=== PATIENT | male | born 1950 | race Two or more races ===

== ENCOUNTER 2020-09-03 16:31 | Outpatient (REF) | payer MEDICARE, MEDICAID, SELFPAY | END 2020-09-03 16:32 | disposition home or self-care (01) | LOC: HO.LAB 16:31 | PROVIDERS: PCP Internal Medicine Gastroenterology; Visit Provider Internal Medicine | DX: Z20.828 Contact with and (suspected) exposure to other viral communicable diseases (principal) | CPT/HCPCS: C9803; U0003 ==

== ENCOUNTER 2021-08-01 14:47 | Emergency (ER) | payer MEDICARE, MEDICAID, SELFPAY ==
--- NOTE | ~2021-08-01 | XR_ITS ---
EXAMINATION: XR SHOULDER, RIGHT CLINICAL INFORMATION: Evaluate for foreign bodies. Axillary abscess. COMPARISON: None TECHNIQUE: Three views of the right shoulder. FINDINGS: No acute fractures or malalignment. The humeral head is well-seated in the glenoid. The acromioclavicular joint is intact. No evidence of acutely displaced right-sided rib fractures. Soft tissue thickening in the right axillary region corresponding to the known axillary abscess. There are some linear radiopacities in this area likely representing soft tissue foldings. There is also gas. No definite radiopaque foreign bodies. XR/XR shoulder RT min 2V IMPRESSION: As above, no definite radiopaque foreign bodies. No acute fractures or malalignment.
--- NOTE | ~2021-08-01 | XR_ITS ---
EXAMINATION: XR CHEST CLINICAL INFORMATION: Right axillary abscess. COMPARISON: None. TECHNIQUE: 2 views of the chest were obtained. FINDINGS: Normal appearance of the cardiomediastinal silhouette. Adequately expanded lungs without focal airspace opacities, pleural effusions or pneumothorax. Healing inferior left rib fractures. No acutely displaced rib fractures. Soft tissue thickening in the right axillary region, likely corresponding to the known axillary abscess. XR/XR chest 2V IMPRESSION: No acute cardiopulmonary findings.
[2021-08-01 15:06] VITALS: BP 127/79; PULSE 80; RESP 18; TEMP 36.8; O2SAT 97; BMI 23.8
--- NOTE | 2021-08-01 16:13 | ECG_ITS ---
Test Reason : R/O SEPSIS Blood Pressure : / mmHG Vent. Rate : 060 BPM Atrial Rate : 060 BPM P-R Int : 108 ms QRS Dur : 082 ms QT Int : 440 ms P-R-T Axes : -02 -16 002 degrees QTc Int : 440 ms Sinus rhythm with short LA Left axis deviation Otherwise normal ECG No previous ECGs available Referred By: Frieda Galvan Electronically Signed By:BHUMI BECERRA MD
--- NOTE | 2021-08-01 16:26 | ED_ITS ---
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 Unknown if there is a foreign body in the abscess on the right axilla, states that this swelling has only been there for 3 days. He does have multiple abscesses to bilateral lower extremities from prior injection sites. He states to be very tired has intermittent chills, and generally feels unwell. MD complaint: abscess/boil and foreign body Onset (ago): week(s) Tetanus up to date: no Location: neck, RUE, LLE and RLE Severity: moderate Severity scale (1-10): 7 Quality: burning and aching Pain Consistency: constant Relieving factors: none Exacerbating factors: palpation and movement Context: IVDA Associated symptoms: chills and malaise Treatments prior to arrival: attempted to drain pus at home Related Data Previous Rx's Medication Instructions Recorded amoxicillin 875 mg-potassium 1 tab PO Q12H 10 Days #20 tab 08/01/21 clavulanate 125 mg tablet (Augmentin) doxycycline monohydrate 100 mg 100 mg PO BID 10 Days #20 cap 08/01/21 capsule ibuprofen 600 mg tablet 600 mg PO Q6H PRN #60 tab 08/01/21 Allergies Allergy/AdvReac Type Severity Reaction Status Date / Time No Known Allergies Allergy Verified 08/01/21 15:05 Review of Systems Review of Systems: Constitutional: No Fever, positive Chills ENT/Mouth: No Ear Pain, No Hoarseness, No sore throat Eyes: No Eye Pain, No Swelling, No Redness, No Foreign Body Cardiovascular: Positive right chest wall Pain, No SOB Respiratory: No Cough, No Dyspnea Gastrointestinal: Positive Nausea, No Vomiting, No Diarrhea, No abdominal Pain Genitourinary: No Dysuria, No Hematuria Musculoskeletal: positive right arm and bilateral lower extremity pain, No M yalgias, No Joint Swelling Skin: No Skin lacerations, No rash Neuro: No Weakness, No Numbness, No Paresthesias, No Loss of Consciousness, No Dizziness, No Headache Psych: No Anxiety/Panic, No Depression Heme/Lymph: no easy bruising, no Lymphadenopathy Endocrine: No Polyuria, No Polydipsia Yes all other systems are reviewed and are negative [facility] Past Medical History Attestation statement: The following information was validated with the patient. Source: old records reviewed Medical History Heroin abuse Social History Social History Advance Directives: No Advance Directives Information Provided: Yes Physical Exam Vital Signs: Vital Signs: Last Vital Signs Temp 98.5 F 08/01/21 19:46 Pulse 78 08/01/21 19:46 Resp 17 08/01/21 19:46 BP 124/76 08/01/21 19:46 Pulse Ox 97 08/01/21 15:06 Body Mass Index 23.8 Appearance: Alert. Oriented X3. No acute distress. Unkempt. Eyes: Pupils equal, round and reactive to light. Sclera nonicteric. ENT: Pharynx normal. Right-sided cervical lymphadenopathy noted. Neck: Normal inspection. Neck supple. Tender to palpation. Right neck phlebitis. CVS: Normal heart rate and rhythm. Pulses normal. Respiratory: No respiratory distress. Breath sounds normal. Abdomen: Soft and nontender. Skin: Multiple abscesses and IV injection sites. Please note photographs of abscesses in extremities. Extremities: No lower extremity edema. Moves all extremities against resistanc e. Neuro: No motor deficit. No sensory deficit. Cranial nerves 2-12 intact. Course Course Course Narrative: 71-year-old male presents with multiple abscesses suspected to be from IV drug use ice. States that they have only been there for 3 days however the amount of induration swelling and phlebitis noted it leads me to believe that these have been there for much longer than 3 days. He does report having a relapse, using at least 1 bundle prior to arrival. He has been clean for 8 years, he is interested in detox. Will order labs, cultures, prepare for I&D of the right axilla, will give Zosyn and vancomycin. I did discuss this case with Dr. Aguilar and she examined the patient at bedside. I&D of abscess, prepped and draped in sterile fashion. Approximately 6 inches of 1/2 inch iodoform dressing packing in place. Patient tolerated procedure well. 7:19 p.m. IV infusion continues. Vital signs are stable and within normal limits. Patient is afebrile. Patient will be discharged to home or detox facility if patient accepts care. White count is normal, no elevated lactic ac id, no indication of sepsis or SIRS. Will complete antibiotic course, provide p.o. antibiotics and discharge. rhythmic gymnastics coach consult complete and discussed plan for detox in the morning. Patient verbalized understanding of and agrees to plan of care. Consultations Consultation #1: rhythmic gymnastics coach Time: 22:10 MDM - Skin/Abscess/Foreign Bdy Differential Diagnosis Differential diagnosis: Likely abscess of skin or subcutaneous tissue, cellulitis, insect bites and contact dermatitis Medical Records Attestation: I reviewed the patient's medical records. Lab Data Attestation: I reviewed the patient's lab results. Result diagrams: 08/01/21 17:13 08/01/21 17:12 Labs: Lab Results 08/01/21 08/01/21 08/01/21 Range/Units 17:12 17:13 17:13 WBC 10.1 (4.8-10.8) X10*3/uL RBC 3.66 L (4.60-5.80) X10*6/uL Hgb 10.7 L (14.0-18.0) g/dl Hct 30.5 L (42-52) % MCV 83.3 (80-98) fL MCH 29.2 (27.0-33.0) pg MCHC 35.1 (31.0-36.0) g/dl RDW 12.1 (11.0-16.0) % Plt Count 251 (160-400) X10*3/uL MPV 10.3 (9.4-12.4) fL Immature Gran % (Auto) 0.7 H (0.0-0.4) % Neut % (Auto) 79.0 H (45-73) % Lymph % (Auto) 12.8 L (20-40) % [place] % (Auto) 7.2 (2-11) % Eos % (Auto) 0.0 (0-4) % Baso % (Auto) 0.3 (0-2) % Lymph # (Auto) 1.3 (1.2-4.9) X10*3/uL [place] # (Auto) 0.7 (0.1-1.2) X10*3/uL Eos # (Auto) 0.0 (0.0-0.4) X10*3/uL Baso # (Auto) 0.0 (0.0-0.2) X10*3/uL Abs Immat Gran (auto) 0.07 H (0.00-0.03) X10*3/uL Absolute Neuts (auto) 8.0 (2.0-8.3) X10*3/uL Absolute Nucleated RBC 0.000 (0.0-0.012) X10*3/uL Nucleated RBC % (auto) 0.0 (0.0-0.2) /100WBC Sodium 136 (135-145) mmol/L Potassium 3.7 (3.3-5.1) mmol/L Chloride 101 (96-108) mmol/L Carbon Dioxide 26 (22-29) mmol/L Anion Gap 13 (12-20) BUN 25 H (9-16) mg/dL Creatinine 1.86 H (0.5-1.4) mg/dL Estim Creat Clear Calc 28.5 Estimated GFR 36 Random Glucose 84 (60-115) mg/dL Lactic Acid 1.1 (0.5-2.0) mmol/L Calcium 9.8 (8.4-10.2) mg/dL Total Bilirubin 0.7 (0.0-1.0) mg/dL Direct Bilirubin 0.2 (0.0-0.5) mg/dL AST 15 (5-37) U/L ALT 7 (0-40) U/L Alkaline Phosphatase 111 (39-117) U/L Troponin I High Sens (<3.5-35.0) ng/L Total Protein 7.6 (6.5-8.0) g/dL Albumin 4.1 (3.5-5.0) g/dL Lipase 10 (8-78) U/L COVID-19 (DIONY) (Negative) COVID-19 Clin Com 08/01/21 08/01/21 Range/Units 17:13 19:56 WBC (4.8-10.8) X10*3/uL RBC (4.60-5.80) X10*6/uL Hgb (14.0-18.0) g/dl Hct (42-52) % MCV (80-98) fL MCH (27.0-33.0) pg MCHC (31.0-36.0) g/dl RDW (11.0-16.0) % Plt Count (160-400) X10*3/uL MPV (9.4-12.4) fL Immature Gran % (Auto) (0.0-0.4) % Neut % (Auto) (45-73) % Lymph % (Auto) (20-40) % [place] % (Auto) (2-11) % Eos % (Auto) (0-4) % Baso % (Auto) (0-2) % Lymph # (Auto) (1.2-4.9) X10*3/uL [place] # (Auto) (0.1-1.2) X10*3/uL Eos # (Auto) (0.0-0.4) X10*3/uL Baso # (Auto) (0.0-0.2) X10*3/uL Abs Immat Gran (auto) (0.00-0.03) X10*3/uL Absolute Neuts (auto) (2.0-8.3) X10*3/uL Absolute Nucleated RBC (0.0-0.012) X10*3/uL Nucleated RBC % (auto) (0.0-0.2) /100WBC Sodium (135-145) mmol/L Potassium (3.3-5.1) mmol/L Chloride (96-108) mmol/L Carbon Dioxide (22-29) mmol/L Anion Gap (12-20) BUN (9-16) mg/dL Creatinine (0.5-1.4) mg/dL Estim Creat Clear Calc Estimated GFR Random Glucose (60-115) mg/dL Lactic Acid (0.5-2.0) mmol/L Calcium (8.4-10.2) mg/dL Total Bilirubin (0.0-1.0) mg/dL Direct Bilirubin (0.0-0.5) mg/dL AST (5-37) U/L ALT (0-40) U/L Alkaline Phosphatase (39-117) U/L Troponin I High Sens 5.3 (<3.5-35.0) ng/L Total Protein (6.5-8.0) g/dL Albumin (3.5-5.0) g/dL Lipase (8-78) U/L COVID-19 (DIONY) Negative (Negative) COVID-19 Clin Com See Note Imaging Data Chest x-ray: Attestation: I personally reviewed and interpreted this imaging study as follows: Radiologist's impression: EXAMINATION: XR CHEST CLINICAL INFORMATION: Right axillary abscess. COMPARISON: None. TECHNIQUE: 2 views of the chest were obtained. FINDINGS: Normal appearance of the cardiomediastinal silhouette. Adequately expanded lungs without focal airspace opacities, pleural effusions or pneumothorax. Healing inferior left rib fractures. No acutely displaced rib fractures. Soft tissue thickening in the right axillary region, likely corresponding to the known axillary abscess. XR/XR chest 2V IMPRESSION: No acute cardiopulmonary findings. Right shoulder: Attestation: I personally reviewed and interpreted this imaging study as follows: Radiologist's impression: EXAMINATION: XR SHOULDER, RIGHT CLINICAL INFORMATION: Evaluate for foreign bodies. Axillary abscess.? COMPARISON: None? TECHNIQUE: Three views of the right shoulder. FINDINGS: No acute fractures or malalignment. The humeral head is well-seated in the glenoid. The acromioclavicular joint is intact. No evidence of acutely displaced right-sided rib fractures. Soft tissue thickening in the right axillary region corresponding to the known axillary abscess. There are some linear radiopacities in this area likely representing soft tissue foldings. There is also gas. No definite radiopaque foreign bodies.? XR/XR shoulder RT min 2V IMPRESSION: As above, no definite radiopaque foreign bodies. ? No acute fractures or malalignment. ECG Data Attestation: I personally reviewed and interpreted this ECG as follows: ECG interpretation date: 08/01/21 ECG interpretation time: 17:00 Prior ECG tracings: not available for review Interpretation: Vent. rate 60 BPM W[place] interval 108 ms QRS duration 82 ms QT/QTc 440/440 ms P-R-T axes -2 -16 2 Sinus rhythm with short [place] Otherwise normal ECG No previous ECGs available Procedures Abscess I/D Site: upper extremity Side (if applicable): right Local Anesthetic: lidocaine 2% Amount of anesthesia used (mL): 10 Technique: incised with blade Amount of fluid expressed (mL): 60 Sent for culture/gram staining?: Yes Irrigation: No Packing used?: iodoform Discharge Plan Discharge Clinical Impression: Cellulitis Qualifiers: Site of cellulitis: extremity Site of cellulitis of extremity: axilla Laterality: right Qualified Code(s): L03.111 - Cellulitis of right axilla Abscess of skin or subcutaneous tissue Qualifiers: Site of cutaneous abscess: extremity Site of cutaneous abscess of extremity: unspecified Qualified Code(s): L02.419 - Cutaneous abscess of limb, unspecified Patient Disposition: Home, Self-Care Instructions: Cellulitis (ED), Abscess (ED), Abscess Follow-up (ED), Abscess Incision and Drainage (DC) Additional Instructions: You were evaluated for multiple abscesses. We incised and drained the abscess on your right armpit. There is iodoform packing inside the abscess that we drained. Please return in 3 days for wound check. Please follow-up with detox in the morning. We prescribed doxycycline and Augmentin antibiotics. Please complete the entire course of these medications If symptoms worsen please return sooner than 3 days. Thank you for choosing this emergency department for evaluation. Please follow-up with primary care physician as needed. Return to the emergency de partment for any new, concerning, or worsening symptoms. Prescriptions: New doxycycline monohydrate 100 mg capsule 100 mg PO BID 10 Days Qty: 20 RF: 0 amoxicillin-pot clavulanate [Augmentin] 875-125 mg tablet 1 tab PO Q12H 10 Days Qty: 20 RF: 0 ibuprofen 600 mg tablet 600 mg PO Q6H PRN (Reason: fever or pain) Qty: 60 RF: 0 Referrals: Wound Care [facility] [Outside] - 2 days (Multiple abscesses) Interventions: ED Discharge Assessment Last Done: 08/01/21 22:02 Discharge Date/Time: 08/01/21 22:06
--- NOTE | 2021-08-01 16:50 | PC.NURSE ---
PT EVALUATED BY PROVIDER. PT HAS LARGE ABSCESS ANTERIOR AXILLA. SITE IS GOLF BALL IN SIZE. PT REPORTS INCREASED PAIN TO SITE. PT STATES THAT HE INJECTS HEROIN TO VARIOUS SITES OF HIS BODY. PT WITH MULTIPLE AREAS ON ARMS AND LEGS THAT ARE INJECTION SITE. PT EXTREMELY DIFFICULT IV START. #20 PLACED TO LEFT FOREARM, UNABLE TO OBTAIN BLOOD WORK. PCT TO ATTEMPT LAB DRAW. PT AWARE AND AGREEABLE TO PLAN.
[2021-08-01 17:22] LABS: MANUAL DIFF FLAG NO
[2021-08-01 17:24] LABS: Basophils Percent Auto 0.3 % (0-2); Hematocrit 30.5 % (42-52); Hemoglobin 10.7 g/dl (14.0-18.0); Imm Gran Abs Auto 0.07 X10*3/uL (0.00-0.03); Imm Gran Pct Auto 0.7 % (0.0-0.4); Lymphocytes Absolute Auto 1.3 X10*3/uL (1.2-4.9); Lymphocytes Percent Auto 12.8 % (20-40); Mean Corpuscular HGB Conc 35.1 g/dl (31.0-36.0); Mean Corpuscular Hemoglobin 29.2 pg (27.0-33.0); Mean Corpuscular Volume 83.3 fL (80-98); Mean Platelet Volume 10.3 fL (9.4-12.4); Monocytes Absolute Auto 0.7 X10*3/uL (0.1-1.2); Monocytes Percent Auto 7.2 % (2-11); Platelet Count 251 X10*3/uL (160-400); Red Blood Count 3.66 X10*6/uL (4.60-5.80); Red Cell Distribution Width 12.1 % (11.0-16.0); White Blood Count 10.1 X10*3/uL (4.8-10.8)
[2021-08-01 17:35] LABS: Lactic Acid 1.1 mmol/L (0.5-2.0)
[2021-08-01 17:39] LABS: Alanine Aminotransferase 7 U/L (0-40); Albumin Level 4.1 g/dL (3.5-5.0); Alkaline Phosphatase 111 U/L (39-117); Anion Gap 13 (12-20); Aspartate Amino Transferase 15 U/L (5-37); Bilirubin Direct 0.2 mg/dL (0.0-0.5); Bilirubin Total 0.7 mg/dL (0.0-1.0); Blood Urea Nitrogen 25 mg/dL (9-16); Calcium 9.8 mg/dL (8.4-10.2); Carbon Dioxide 26 mmol/L (22-29); Chloride 101 mmol/L (96-108); Creatinine Clr Calc Pharmacy 28.5; Estimated Glomerular Filt Rate 36; Glucose Random 84 mg/dL (60-115); Lipase 10 U/L (8-78); Potassium 3.7 mmol/L (3.3-5.1); Sodium 136 mmol/L (135-145); Total Protein 7.6 g/dL (6.5-8.0)
[2021-08-01 17:45] LABS: Troponin-I High Sensitivity 5.3 ng/L (<3.5-35.0)
[2021-08-01] MEDS: Piperacillin Sodium/Tazobactam 3.375 GM in 0.9 % Sodium Chloride 50 ML IV (17:49)
[2021-08-01] MEDS: Lidocaine HCl 2 % MPF 5 ML VIAL 10 ML SUBCUT (17:49)
[2021-08-01] MEDS: Diphth,Pertus(ACell),Tet Adult 0.5 ML SYRINGE IM (17:50)
[2021-08-01] MEDS: 0.9 % Sodium Chloride 1,000 ML 999 ML IVCONT ×2 (17:52→18:54)
[2021-08-01] MEDS: vancomycin HCL 750 MG in 0.9 % Sodium Chloride 250 ML 265 MG IV (17:52)
[2021-08-01 19:46] VITALS: BP 124/76; PULSE 78; RESP 17; TEMP 36.9
[2021-08-01 20:16] LABS: COVID-19 Test Negative (Negative); IDNOW Serial# 55D5AD1C
--- NOTE | 2021-08-01 20:43 | MHC.RECOVSUP ---
? Reason for consult:Detox o?? Current location [facility]? o?? Identified substance use concern ?Heroine ?? Seeking ATS (detox) ?? Support ? Intervention: o?? ATS bed search started/completed/in process o?? Community resources provided o?? Harm reduction discussion ? Plan: o?? o?? Bed search in progress to o?? Follow up tomorrow? o?? Patient to follow up with [facility] after discharge ? Additional information: Pt. wants to go to detox Explained to Pt. that I would start a bed search.Wasn't able to find a bed but tonight. But [facility] states that there will be beds available tomorrow.Informed Care Team about the situation. They will try to do the bed search tomorrow. Gave information resource to Pt. Pt. will stay overnight.
--- NOTE | 2021-08-01 21:32 | PC.NURSE ---
PT WILL BE GOING TO THE WAIT ROOM BECAUSE [facility] CAN GET HIM A BED AT [facility] TOMORROW. PT HAS NO MEDICAL REASON TO BE ADMITTED TO HOSPITAL.
--- NOTE | 2021-08-01 22:06 | PC.NURSE ---
PT RIGHT UNDERARM ABSCESS CLEANED AND DRAINED AND PACKED BY MEGHA GUTIERREZ. DSD APPLIED.
== END 2021-08-01 22:06 | disposition home or self-care (01) ==
PROVIDERS: Nurse Practitioner Family; Emergency Provider Emergency Medicine; PCP Internal Medicine Gastroenterology
DX: L03.111 Cellulitis of right axilla (principal); L02.419 Cutaneous abscess of limb, unspecified; L02.411 Cutaneous abscess of right axilla; M79.10 Myalgia, unspecified site; M79.601 Pain in right arm; S40.811A Abrasion of right upper arm, initial encounter; X58.XXXA Exposure to other specified factors, initial encounter; Y93.9 Activity, unspecified; Y92.9 Unspecified place or not applicable; Y99.9 Unspecified external cause status; Z79.899 Other long term (current) drug therapy; Z20.822 Contact with and (suspected) exposure to COVID-19
CPT/HCPCS: 10060; 36415; 71046; 73030; 80048; 80076; 83605; 83690; 84484; 85025; 87040; 87071; 87077; 87147; 87186; 87205; 87635; 90471; 90715; 93005; 96361; 96374; 96375; 99284; J2543; J3370

== ENCOUNTER 2022-05-04 11:39 | Emergency (ER) | payer MEDICARE, SELFPAY ==
[2022-05-04 12:00] VITALS: BP 124/77; PULSE 74; RESP 18; TEMP 36.7; O2SAT 97; BMI 23.8
[2022-05-04 12:40] LABS: MANUAL DIFF FLAG NO
[2022-05-04 12:49] LABS: Basophils Percent Auto 0.2 % (0-2); Eosinophils Percent Auto 0.2 % (0-4); Hematocrit 35.9 % (42.0-52.0); Hemoglobin 11.8 g/dl (14.0-18.0); Imm Gran Abs Auto 0.05 X10*3/uL (0.00-0.03); Imm Gran Pct Auto 0.5 % (0.0-0.4); Lymphocytes Absolute Auto 0.9 X10*3/uL (1.2-4.9); Lymphocytes Percent Auto 9.7 % (20-40); Mean Corpuscular HGB Conc 32.9 g/dl (31.0-36.0); Mean Corpuscular Hemoglobin 28.7 pg (27.0-33.0); Mean Corpuscular Volume 87.3 fL (80.0-98.0); Mean Platelet Volume 10.3 fL (9.4-12.4); Monocytes Absolute Auto 0.6 X10*3/uL (0.1-1.2); Monocytes Percent Auto 6.5 % (2-11); Neutrophils Absolute Auto 8.1 x10*3/uL (2.0-8.3); Neutrophils Percent Auto 82.9 % (45-73); Platelet Count 180 X10*3/uL (160-400); Red Blood Count 4.11 X10*6/uL (4.60-5.80); Red Cell Distribution Width 12.6 % (11.0-16.0); White Blood Count 9.7 X10*3/uL (4.8-10.8)
[2022-05-04 12:59] LABS: Alanine Aminotransferase 40 U/L (0-40); Albumin Level 4.5 g/dL (3.5-5.0); Alkaline Phosphatase 171 U/L (39-117); Anion Gap 11 (12-20); Aspartate Amino Transferase 59 U/L (5-37); Bilirubin Total 0.5 mg/dL (0.0-1.0); Blood Urea Nitrogen 18 mg/dL (9-16); Calcium 9.4 mg/dL (8.4-10.2); Carbon Dioxide 29 mmol/L (22-29); Chloride 104 mmol/L (96-108); Creatinine Clr Calc Pharmacy 60.8; Estimated Glomerular Filt Rate > 60; Glucose Random 105 mg/dL (60-115); Potassium 4.5 mmol/L (3.3-5.1); Sodium 139 mmol/L (135-145); Total Protein 8.1 g/dL (6.5-8.0)
[2022-05-04 13:01] LABS: COVID-19 Test Negative (Negative); IDNOW Serial# 16C4AD1C
[2022-05-04 20:45] LABS: Bilirubin Direct 0.2 mg/dL (0.0-0.5); Lipase 9 U/L (8-78)
== END 2022-05-04 22:02 | disposition left against medical advice (07) ==
PROVIDERS: Emergency Medicine; Emergency Provider Internal Medicine
DX: R19.7 Diarrhea, unspecified (principal); R11.2 Nausea with vomiting, unspecified; Z20.822 Contact with and (suspected) exposure to COVID-19; Z79.899 Other long term (current) drug therapy
CPT/HCPCS: 36415; 80053; 82248; 83690; 85025; 87635; 99281; 99283

== ENCOUNTER 2022-05-05 14:44 | Emergency (ER) | payer MEDICARE, MEDICAID, SELFPAY ==
--- NOTE | ~2022-05-05 | XR_ITS ---
EXAMINATION: XR CHEST CLINICAL INFORMATION: Left-sided chest pain and fever COMPARISON: 08/01/2021 TECHNIQUE: 2 views of the chest were obtained. FINDINGS: The heart and pulmonary vessels appear normal. No infiltrates or effusions are seen. There is scarring present bilaterally. There is a new rounded mass present in the right lower lung zone measuring about 2.4 cm. Differential diagnosis would certainly includes neoplasm. Round pneumonia is probably less likely. Contrast-enhanced CT scan would be helpful for further evaluation if this would offer better evaluation of the pulmonary best. XR/XR chest 2V IMPRESSION: New round lung mass right lung. CT of the chest is recommended for further evaluation.
--- NOTE | ~2022-05-05 | CT_ITS ---
EXAMINATION: CT ANGIOGRAM OF THE CHEST WITH AND WITHOUT CONTRAST (CT PULMONARY ANGIOGRAM FOR PE) CLINICAL INFORMATION: Reason for Exam right sided chest pain, new lung mass COMPARISON: Chest radiograph earlier this evening TECHNIQUE: Prior to contrast administration, noncontrast localization images were obtained. Subsequently, multidetector volumetric imaging was performed from the thoracic inlet to below the diaphragms following the administration of 98 mL Omnipaque 350 intravenous contrast. No contrast reaction reported Sagittal, coronal, and MIP oblique sagittal reformatted images were obtained on the CT workstation, uploaded to PACS, and reviewed. This CT examination was performed using dose optimization techniques as appropriate, variously including the following: *Automated exposure control *Adjustment of mA and/or kV according to patient size (this includes techniques or standardized protocols for targeted exams where dose is matched to indication/reason for exam; i.e. extremities or head) *Use of iterative reconstruction technique Total exam dose-length product 301 mGy-cm FINDINGS: QUALITY OF STUDY/CONTRAST BOLUS: Satisfactory. PULMONARY ARTERIES: No central or segmental pulmonary emboli. THORACIC AORTA: No aneurysm or dissection. LUNG: Multiple lung masses are present predominantly in the right lung but with some in the left as well ranging in size from a few millimeters up to 2.2 cm in size. Jean Baptiste images of all have been saved. Findings are suspicious for metastatic disease. No infiltrates. PLEURA: No pleural effusion or pneumothorax. MEDIASTINUM: Heart size upper limits of normal. No pericardial effusion. No hilar or mediastinal lymphadenopathy. No evidence of septal bowing or right heart strain. CHEST WALL/AXILLA: There is some flattening of the intraventricular septum suggesting elevated right heart pressure. OSSEOUS STRUCTURES: Degenerative changes in the spine. No evidence of bony destructive lesions to suggest osseous metastatic disease. UPPER ABDOMEN: There is fatty infiltration of the pancreas, especially the head and neck. The adrenal glands appear normal. Multiple large liver masses are seen in all lobes the largest measuring just over 3 cm and the left lobe. Some periportal lymph nodes are present but there is no gross lymphadenopathy.. No reflux of contrast into the hepatic veins to suggest elevated right heart pressures. CT/CT angio chest PE protocol IMPRESSION: Evidence of metastatic disease with multiple pulmonary as well as hepatic metastatic lesions. A primary source is not evident on this imaging study. Ultrasound-guided biopsy of one of the liver lesions may provide the best course of tissue for diagnosis. VTE: negative
[2022-05-05 15:40] VITALS: BP 122/77; PULSE 70; RESP 18; TEMP 36.7; O2SAT 99; BMI 23.0
--- NOTE | 2022-05-05 19:52 | ED.GENADULT ---
HPI - General Adult General Chief complaint: General Medical Stated complaint: Diarrhea/Abd pain Time Seen by Provider: 05/05/22 19:52 Source: patient Mode of arrival: ambulatory Limitations: no limitations History of Present Illness HPI narrative: 72 yo male presents to the ER for evaluation of dysuria and urethral discharge for the last 2 days. He feels generally unwell with body aches and chills. He reports having sex with a woman who has gonorrhea and thinks he has gonorrhea. He denies any fevers, hematuria or abdominal pain. He denies any testicular pain or genital lesions. In addition he reports pain under his right axilla and right chest with he takes deep breaths, moves or pushes on it. He denies any trauma or injury. He has a dry cough but no CHAN or SOB. MD complaint: Urethral discharge and right-sided chest pain Onset (ago): day(s) Location: chest and genitals Radiation: non-radiation Severity: moderate Quality: aching Pain Consistency: intermittent Relieving factors: none Exacerbating factors: other (Urination) Associated symptoms: chest pain and shortness of breath Treatments prior to arrival: none Related Data Previous Rx's Medication Instructions Recorded amoxicillin 875 mg-potassium 1 tab PO Q12H 10 days #20 tabs 08/01/21 clavulanate 125 mg tablet (Augmentin) doxycycline monohydrate 100 mg 100 mg PO BID 10 days #20 caps 08/01/21 capsule ibuprofen 600 mg tablet 600 mg PO Q6H PRN fever or pain 08/01/21 #60 tabs doxycycline hyclate 100 mg tablet 100 mg PO BID #14 tabs 05/06/22 Allergies Allergy/AdvReac Type Severity Reaction Status Date / Time No Known Allergies Allergy Verified 08/01/21 15:05 Review of Systems Review of Systems: Constitutional: No Fever, No Chills ENT/Mouth: No sore throat, No Rhinorrhea Cardiovascular: + Chest Pain, + SOB, No Orthopnea, No Edema Respiratory: No Cough, No Sputum, No Wheezing, No dyspnea Gastrointestinal: No Nausea, No Vomiting, No Diarrhea, No abdominal Pain Genitourinary: + Dysuria, No Urinary Frequency, No Hematuria, +Urethral discharge Musculoskeletal: No joint pain, No Myalgias Skin: No Skin Lesions, No rash Neuro: No Weakness, No Numbness, No Dizziness, No Headache Heme/Lymph: No Bruising, No Lymphadenopathy Endocrine: No Polyuria, No Polydipsia PMFSH Past Medical History Medical History Heroin abuse Social History Social History Advance Directives: No Advance Directives Information Provided: Yes Physical Exam ED Vital Signs: Vital Signs - 24 hr 05/05/22 15:40 Temperature 98.0 F Pulse Rate 70 Respiratory Rate 18 Blood Pressure 122/77 Pulse Oximetry 99 Oxygen Delivery Method Room Air BMI result Body Mass Index 23.0 Appearance: Alert. Oriented X3. No acute distress. Eyes: Pupils equal, round and reactive to light. ENT: Pharynx normal. Dentition absent Neck: Normal inspection. Neck supple. CVS: Normal heart rate and rhythm. Pulses normal. Respiratory: No respiratory distress. Breath sounds normal. Abdomen: Soft and nontender. +BS x4 : Normal inspection of the genitalia, circumcised penis, mucoid discharge at the urethral meatus. No testicular tenderness. Skin: Skin warm and dry. Normal skin color. Normal skin turgor. No rashes. Extremities: No lower extremity edema. Neuro: Oriented X 3. Grossly normal, nonfocal, steady gait Course Course Course Narrative: 72-year-old male presents to the ER for evaluation of urethral discharge consistent with gonorrhea as he has had sexual intercourse with a woman who had tested positive for gonorrhea. Also reports right-sided chest pain and shortness of breath. Chest x-ray will be performed. He will be treated for gonorrhea with IM Rocephin and doxycycline. Reevaluation(s) Reevaluation #1: Chest x-ray showing a new pulmonary lesion. Will get CT with contrast to evaluate for possible pulmonary embolism and to better evaluate his new lung mass. Reevaluation #2: CT scan is showing evidence of metastatic disease with multiple pulmonary as well as hepatic metastatic lesions. Primary source is not evident. Patient require ultrasound-guided biopsy of 1 of his lesions to determine cancer primary. We discussed in length the results of his scans and his need for follow-up. Will refer to Oncology. He will call them in the morning to arrange for an appointment. Stable for discharge home. Procedures EJ/Peripheral Line Arm R: Skin Cleansed in Sterile Fashion: Yes Size (gauge): 20 IV Secured and Dressing Applied: Yes Patient Tolerated Procedure: well and no complications Medical Decision Making ECG Data Attestation: I personally reviewed and interpreted this ECG as follows: Interpretation: Normal sinus rhythm, heart rate 60 beats per minute, normal SC interval, normal QTC, no ST segment elevations or depressions. Critical Care Time Critical Care Time Critical Care Time: No Discharge Plan Discharge Clinical Impression: Multiple lesions of metastatic malignancy, Urethritis Patient Disposition: Home, Self-Care Additional Instructions: Your CT scan today showed evidence of metastatic disease with multiple lung and liver tumors. You will need a biopsy of one of these tumors to determine what type of cancer you have. Call the cancer doctor tomorrow morning to arrange this. Name and number below. Your tested and treated for gonorrhea. Take the prescribed antibiotic as directed to complete treatment for this. The prescription was sent to the [facility] on [facility] in [place]. Recommend following up with her primary care doctor If you develop new or worsening symptoms call 911 or come back to the ER for further evaluation. Prescriptions: New doxycycline hyclate 100 mg tablet 100 mg PO BID Qty: 14 0RF No Action doxycycline monohydrate 100 mg capsule 100 mg PO BID 10 Days Qty: 20 0RF amoxicillin-pot clavulanate [Augmentin] 875-125 mg tablet 1 tab PO Q12H 10 Days Qty: 20 0RF ibuprofen 600 mg tablet 600 mg PO Q6H PRN (Reason: fever or pain) Qty: 60 0RF Referrals: Stan Chaney MD [Physician] - (Metastatic lesions of the liver and lung need to determine primary)
[2022-05-05] MEDS: cefTRIAXone sodium 500 MG, Lidocaine HCl 1 % MPF 1 ML IM (21:01)
--- NOTE | 2022-05-05 21:13 | ECG_ITS ---
Test Reason : chest pain Blood Pressure : / mmHG Vent. Rate : 060 BPM Atrial Rate : 060 BPM P-R Int : 154 ms QRS Dur : 080 ms QT Int : 398 ms P-R-T Axes : 028 -27 012 degrees QTc Int : 398 ms Normal sinus rhythm Normal ECG When compared with ECG of 01-AUG-2021 17:00, [place] interval has increased Referred By: Alicia June Electronically Signed By:Ashish Kemp
[2022-05-06] MEDS: iohexoL 350 MG/ML 100 ML INFUS..BTL 98 ML IV (00:02)
[2022-05-06 07:05] LABS: CT PCR NOT DETECTED (Not Detect.); NG PCR DETECTED (Not Detect.)
== END 2022-05-06 00:58 | disposition home or self-care (01) ==
PROVIDERS: Emergency Provider Internal Medicine
DX: A54.01 Gonococcal cystitis and urethritis, unspecified (principal); C78.7 Secondary malignant neoplasm of liver and intrahepatic bile duct; C78.02 Secondary malignant neoplasm of left lung; C78.01 Secondary malignant neoplasm of right lung; F11.10 Opioid abuse, uncomplicated
CPT/HCPCS: 71046; 71275; 87491; 87591; 93005; 96372; 99282; 99284; J0696; Q9967

== ENCOUNTER → 2022-05-25 11:49 | Day surgery (SDC) | payer MEDICARE, MEDICAID, SELFPAY ==
[2022-05-25 12:23] VITALS: BMI 23.8
--- NOTE | 2022-05-25 13:30 | PC.NURSE ---
pt canceled. took one dose of alleve yesterday.
== END ==
PROVIDERS: Visit Provider Radiology Diagnostic Radiology
DX: R16.0 Hepatomegaly, not elsewhere classified (principal); Z53.8 Procedure and treatment not carried out for other reasons

== ENCOUNTER 2022-05-29 12:47 | Day surgery (SDC) | payer MEDICARE, MEDICAID, SELFPAY ==
--- NOTE | ~2022-05-29 | US_ITS ---
EXAMINATION: ULTRASOUND-GUIDED LIVER BIOPSY CLINICAL INFORMATION: Liver lesions seen on chest CTA COMPARISON: Previous chest CTA 05/05/2022 TECHNIQUE: Procedure and risks and benefits including bleeding and infection were discussed with the patient and informed consent was obtained. The patient was positioned in the left decubitus position. The right upper quadrant was prepped and draped in the usual sterile fashion. The skin and soft tissues were anesthetized with 1% lidocaine plain. Using ultrasound guidance and a coaxial system, access to a hyperechoic lesion in the right lobe of the liver was obtained. 3 20-gauge core biopsies were obtained. The patient received Versed 1 mg and fentanyl 50 mcg intravenously during the procedure. Total sedation time was 15 minutes. Conscious sedation was provided by registered nurse with continuous hemodynamic monitoring under my direct supervision. FINDINGS: There are multiple hyperechoic liver lesions. A 2.5 cm lesion in the right lobe of the liver was targeted for biopsy. Postbiopsy imaging demonstrated no evidence of hematoma. US/US biopsy liver IMPRESSION: Ultrasound-guided liver biopsy.
[2022-05-29 12:59] VITALS: BMI 23.8
[2022-05-29 13:03] VITALS: BP 124/73; PULSE 79; RESP 17; TEMP 36.2; O2SAT 96
--- NOTE | 2022-05-29 14:10 | HO.RADPN ---
RADIOLOGY Narrative Narrative: Right lobe liver biopsy using coaxial system. 3 20g core biopsies obtained. No complication. Restart blood thinners on 05/31/22.
[2022-05-29 14:15] VITALS: BP 103/65; PULSE 54; RESP 14; TEMP 36.6; O2SAT 95
[2022-05-29] MEDS: Lidocaine HCl 1 % 20 ML VIAL SUBCUT (14:18)
[2022-05-29 14:30] VITALS: BP 107/61; PULSE 57; RESP 18; O2SAT 95
[2022-05-29 14:45] VITALS: BP 113/65; PULSE 78; RESP 18; O2SAT 94
[2022-05-29 15:00] VITALS: BP 99/61; PULSE 61; RESP 18; O2SAT 96
[2022-05-29 15:15] VITALS: BP 110/61; PULSE 63; RESP 18; TEMP 36.3; O2SAT 96
== END 2022-05-29 15:33 | disposition home or self-care (01) ==
PROVIDERS: Internal Medicine; Visit Provider Radiology Diagnostic Radiology
DX: C78.7 Secondary malignant neoplasm of liver and intrahepatic bile duct (principal); R16.0 Hepatomegaly, not elsewhere classified; R91.8 Other nonspecific abnormal finding of lung field; B19.20 Unspecified viral hepatitis C without hepatic coma; F11.10 Opioid abuse, uncomplicated
CPT/HCPCS: 36415; 47000; 76942; 81479; 88307; 88313; 88341; 88342; 88360; 88377; 99152; J2250; J3010

== ENCOUNTER → 2022-07-03 16:01 | Outpatient (BNVA) | payer MEDICARE, SELFPAY | PROVIDERS: Visit Provider Internal Medicine | DX: R76.8 Other specified abnormal immunological findings in serum (principal); C18.9 Malignant neoplasm of colon, unspecified; C78.7 Secondary malignant neoplasm of liver and intrahepatic bile duct; R10.11 Right upper quadrant pain; F19.90 Other psychoactive substance use, unspecified, uncomplicated | CPT/HCPCS: 99202 ==

== ENCOUNTER 2022-07-10 10:28 | Outpatient (REF) | payer MEDICARE, SELFPAY ==
--- NOTE | ~2022-07-10 | CT_ITS ---
EXAMINATION: CT ABDOMEN AND PELVIS WITH CONTRAST CLINICAL INFORMATION: Metastatic disease to the liver. Question colorectal primary. COMPARISON: Previous CT of the chest April 2022 and ultrasound-guided liver biopsy May 2022 TECHNIQUE: Multidetector volumetric images were obtained from the superior aspect of the liver through the pubic symphysis following administration 85 mL of Omnipaque 350 intravenous contrast. Sagittal and coronal reformatted images were obtained on the technologist's workstation. Oral contrast: Yes This CT examination was performed using dose optimization techniques as appropriate, variously including the following: *Automated exposure control *Adjustment of mA and/or kV according to patient size (this includes techniques or standardized protocols for targeted exams where dose is matched to indication/reason for exam; i.e. extremities or head) *Use of iterative reconstruction technique DLP: 254 mGy-cm FINDINGS: LUNG BASES: There are multiple bilateral pulmonary nodules. There is interval increase in size and number of bilateral pulmonary nodules compared to April 2022 exam. There are new small pulmonary nodules for example measuring 5 mm in the right lower lobe axial image 9 and 12 series 7. Largest largest right pulmonary nodule is in the right lower lobe measuring 2.4 cm axial image 4 series 7 compared to 2 cm on prior chest CT. Largest left pulmonary nodule measures 1.1 cm in the left lower lobe axial image 7 series 7 compared to 5 mm April 2022 exam. LIVER, GALLBLADDER, AND BILIARY TREE: The liver is slightly enlarged. There are innumerable low-attenuation liver lesions seen diffusely throughout the liver. Largest lesion in the left lobe measures 4.7 x 5 cm in the lateral segment of the left lobe axial image 17 series 3. Largest lesion or conglomerate lesion in the right lobe measures 4 x 4 cm centrally near the hepatic venous confluence axial image 21 series 3 and lesion or conglomerate lesion measuring 4.5 x 7 cm in the lateral right lobe axial image 20 series 3. The gallbladder is normal. There is no intrahepatic biliary duct dilatation. The common bile duct is dilated measuring 1.5 cm. PANCREAS: There are atrophic changes of the pancreas. The main pancreatic duct does not appear dilated. SPLEEN: Unremarkable. ADRENAL GLANDS: Unremarkable. KIDNEYS AND URETERS: There is a small 2 mm nonobstructing stone in the upper pole of the left kidney. There is no right hydronephrosis. The right proximal ureter is slightly dilated and there is question of a 3 mm right proximal ureteral stone. The kidneys are otherwise unremarkable. BLADDER: Unremarkable. GASTROINTESTINAL TRACT: There is stool throughout the colon suggestive of constipation. There is abnormal appearance to the ascending colon with area of wall thickening and enhancement axial image 50 series 3. Adjacent to this are enlarged pericolic lymph nodes, largest lymph node measuring 1.8 cm axial image 47 series 3. Small and large bowel is otherwise normal. The appendix is normal. The stomach is not optimally distended and not well evaluated. There is question of wall thickening of the distal thoracic esophagus. ABDOMINAL WALL: Small umbilical hernia containing fat. LYMPH NODES: Enlarged abnormal appearing lymph nodes in the mesentery of the proximal right colon. No other enlarged lymph nodes. No ascites. VASCULAR: Atherosclerotic disease. No aneurysm. PELVIC VISCERA: Unremarkable. OSSEOUS STRUCTURES: Degenerative changes of the spine. No suspicious bone lesion. CT/CT abdomen pelvis w IV con IMPRESSION: Enlarged liver and innumerable liver lesions suggestive of metastatic disease. Interval increase in size and number of bilateral pulmonary nodules. Abnormal wall thickening and enhancement of the right colon suspicious for neoplasm. There are enlarged abnormal appearing right pericolic mesenteric lymph nodes adjacent to the proximal right colon. Constipation. Small nonobstructing left renal stone. No right hydronephrosis. Mild right ureteral dilatation and question 4 mm right proximal ureteral stone. Fleischner guidelines were followed.
[2022-07-10] MEDS: iohexoL 350 MG/ML 100 ML INFUS..BTL IV (12:39)
[2022-07-10] MEDS: Barium Sulfate Oral (Mocha) 450 ML ORAL.SUSP 900 ML PO (12:40)
== END 2022-07-10 10:29 | disposition home or self-care (01) ==
LOC: HO.CT 10:28
PROVIDERS: Visit Provider Internal Medicine
DX: C78.7 Secondary malignant neoplasm of liver and intrahepatic bile duct (principal)
CPT/HCPCS: 74177; Q9967

== ENCOUNTER → 2022-07-21 12:53 | Outpatient (BNVA) | payer MEDICARE, SELFPAY | PROVIDERS: Visit Provider Internal Medicine | DX: C80.1 Malignant (primary) neoplasm, unspecified (principal); C78.7 Secondary malignant neoplasm of liver and intrahepatic bile duct; R10.11 Right upper quadrant pain; K59.00 Constipation, unspecified; R76.8 Other specified abnormal immunological findings in serum; F19.90 Other psychoactive substance use, unspecified, uncomplicated | CPT/HCPCS: 99212 ==

== ENCOUNTER 2022-07-30 07:47 | Day surgery (SDC) | payer MEDICARE, SELFPAY ==
--- NOTE | ~2022-07-30 | IR_ITS ---
PROCEDURE: IR INSERTION OF TUNNEL CATHETER CLINICAL INFORMATION: Colon cancer. COMPARISON: None. TECHNIQUE: Preprocedure and risks and benefits including bleeding, infection and pneumothorax were discussed with the patient and informed consent was obtained. All elements of maximal sterile barrier technique followed including use of cap, mask, sterile gown, sterile gloves, a sterile full body drape and hand hygiene. Also followed skin preparation with 2% chlorhexidine for cutaneous antisepsis, and sterile ultrasound preparation with sterile gel and probe cover when applicable. The right neck and chest were prepped and draped in the usual sterile fashion. The skin and soft tissues were anesthetized with 1% lidocaine plain. Using ultrasound guidance and a 5 Mauritian micropuncture system, right internal jugular vein access was obtained. Over a 0.018 wire, a 5 Mauritian dilator was positioned in the SVC. The skin and soft tissues of the right upper anterior chest were anesthetized with 1% lidocaine plain. A small incision was made. Using blunt dissection, a subcutaneous pocket was created. A subcutaneous tunnel from the chest to the neck incision was anesthetized with 1% lidocaine plain. Using a tunneler, a 6.6 Mauritian single-lumen catheter was tunneled from the chest to the neck incision. The catheter was attached to the port. The port was positioned in the subcutaneous pocket and secured using two 2-0 nonabsorbable sutures. A 0.035 guidewire was advanced through the 5 Mauritian dilator into the IVC. The 5 Mauritian dilator was exchanged for a 7 Mauritian peel-away sheath. Using bent wire technique, catheter length was estimated and the catheter was cut. Catheter length is 21 cm. Catheter was fed through the peel-away sheath. The neck incision was closed using a 4-0 absorbable subcuticular suture. Chest incision was closed using four 3-0 absorbable interrupted sutures followed by a running absorbable 4-0 suture. The port was accessed. The port had good blood return, flushed easily and was instilled with heparin 5 mL 100 unit per mL solution. The patient received Versed 1 mg and fentanyl 50 mcg intravenously during the procedure. FLUOROSCOPY TIME: 0.2 minutes. DAP: 16 cGy-cm2. TOTAL SEDATION TIME: 34 minutes. Real-time ultrasound guidance was used to document vein patency and for needle entry. A formal ultrasound picture was recorded. FINDINGS: There is a right internal jugular 6.6 Mauritian single-lumen Dignity Port-A-Cath with tip projecting over the cavoatrial junction. IR/IR cvc insert tunnel w prt/industrial relations worker IMPRESSION: Right internal jugular 6.6 single-lumen Dignity Port-A-Cath placement.
[2022-07-30 08:06] VITALS: BP 120/76; PULSE 74; RESP 18; TEMP 36.3; O2SAT 95
[2022-07-30 08:37] VITALS: BMI 24.0
[2022-07-30 08:41] LABS: MANUAL DIFF FLAG NO
[2022-07-30 08:45] LABS: Basophils Percent Auto 0.4 % (0-2); Eosinophils Percent Auto 0.1 % (0-4); Hematocrit 33.5 % (42.0-52.0); Hemoglobin 10.9 g/dl (14.0-18.0); Imm Gran Abs Auto 0.08 X10*3/uL (0.00-0.03); Imm Gran Pct Auto 0.8 % (0.0-0.4); Lymphocytes Absolute Auto 2.1 X10*3/uL (1.2-4.9); Mean Corpuscular HGB Conc 32.5 g/dl (31.0-36.0); Mean Corpuscular Hemoglobin 27.3 pg (27.0-33.0); Mean Platelet Volume 10.5 fL (9.4-12.4); Monocytes Absolute Auto 0.8 X10*3/uL (0.1-1.2); Monocytes Percent Auto 8.3 % (2-11); Neutrophils Absolute Auto 6.8 x10*3/uL (2.0-8.3); Neutrophils Percent Auto 69.4 % (45-73); Platelet Count 199 X10*3/uL (160-400); Red Blood Count 3.99 X10*6/uL (4.60-5.80); Red Cell Distribution Width 13.1 % (11.0-16.0); White Blood Count 9.8 X10*3/uL (4.8-10.8)
[2022-07-30 09:03] LABS: INTERNATIONAL NORM RATIO 1.1 (0.9-1.1); Prothrombin Time 12.8 SEC (10.0-13.1)
[2022-07-30 09:06] LABS: Partial Thromboplastin Time 34.5 SEC (26.0-36.4)
--- NOTE | 2022-07-30 10:49 | HO.RADPN ---
RADIOLOGY Narrative Narrative: RIJ 6.6 fr Dignity portacath placed. Tip in SVC.
[2022-07-30 10:50] VITALS: BP 137/86; PULSE 68; RESP 18; TEMP 36.8; O2SAT 95
[2022-07-30 11:05] VITALS: BP 137/86; PULSE 57; RESP 18; O2SAT 94
[2022-07-30 11:20] VITALS: BP 120/51; PULSE 56; RESP 18; O2SAT 95
[2022-07-30 11:50] VITALS: BP 107/59; PULSE 65; RESP 18; TEMP 36.9; O2SAT 95
== END 2022-07-30 12:06 | disposition home or self-care (01) ==
PROVIDERS: Radiology Diagnostic Radiology; Visit Provider Internal Medicine
DX: C18.9 Malignant neoplasm of colon, unspecified (principal); B19.20 Unspecified viral hepatitis C without hepatic coma; F11.11 Opioid abuse, in remission; Z87.828 Personal history of other (healed) physical injury and trauma; Z79.1 Long term (current) use of non-steroidal anti-inflammatories (NSAID)
CPT/HCPCS: 36415; 36561; 76937; 85025; 85610; 85730; 99152; 99153; C1769; C1788; J0690; J1642; J2250; J3010

== ENCOUNTER 2022-08-12 13:25 | Outpatient (REF) | payer MEDICARE, SELFPAY ==
--- NOTE | ~2022-08-12 | US_ITS ---
EXAMINATION: US VENOUS ULTRASOUND WITH DOPPLER LOWER EXTREMITY, BILATERAL CLINICAL INFORMATION: Shortness of breath on exertion. COMPARISON: None TECHNIQUE: Ultrasound of the deep veins is performed from the hip to the calf with compression sonography and color and pulse Doppler assessment. Spectral analysis with color-flow imaging is performed. FINDINGS: RIGHT: There is normal venous compression and respiratory variation and augmented flow. The visualized common femoral vein, superficial femoral vein, profunda femoral vein, popliteal vein, and the trifurcation region shows no evidence of deep venous thrombosis. No right popliteal cyst. The subcutaneous soft tissues are unremarkable. LEFT: There is normal venous compression and respiratory variation and augmented flow. The visualized common femoral vein, superficial femoral vein, profunda femoral vein, popliteal vein, and the trifurcation region shows no evidence of deep venous thrombosis. No left popliteal cyst. The subcutaneous soft tissues are unremarkable. If the patient's symptoms persist, followup ultrasound in 5 days 7 days might be of value to exclude proximal propagation from a non-visualized calf vein. US/US venous duplex LE BI IMPRESSION: No evidence for deep venous thrombosis in the visualized veins of the bilateral lower extremities.
== END 2022-08-12 13:26 | disposition home or self-care (01) ==
LOC: HO.US 13:25
PROVIDERS: Visit Provider Internal Medicine Medical Oncology
DX: R60.0 Localized edema (principal); R06.02 Shortness of breath
CPT/HCPCS: 93970

== ENCOUNTER 2022-10-07 14:02 | Outpatient (REF) | payer MEDICARE, SELFPAY | END 2022-10-07 14:03 | disposition home or self-care (01) | LOC: HO.LAB 14:02 | PROVIDERS: Visit Provider Internal Medicine | DX: Z13.89 Encounter for screening for other disorder (principal) ==

== ENCOUNTER 2022-12-08 15:00 | Outpatient (REF) | payer MEDICARE, SELFPAY ==
--- NOTE | ~2022-12-08 | CT_ITS ---
EXAMINATION: CT CHEST WITH CONTRAST CLINICAL INFORMATION: Colon cancer. Assess response to treatment COMPARISON: Previous chest CT most recent April 2022 TECHNIQUE: Multidetector volumetric CT imaging of the chest was obtained after the administration of 85 mL of Omnipaque 350 intravenous contrast without immediate adverse reactions. Axial MIP volume rendering provided. Sagittal and coronal reformatted images were obtained. This CT examination was performed using dose optimization techniques as appropriate, variously including the following: *Automated exposure control *Adjustment of mA and/or kV according to patient size (this includes techniques or standardized protocols for targeted exams where dose is matched to indication/reason for exam; i.e. extremities or head) *Use of iterative reconstruction technique DLP: 317 mGy-cm FINDINGS: LUNGS: There is interval increase in size and number of bilateral pulmonary nodules. Largest right pulmonary nodule measures 2 x 2.4 cm in the right lower lobe axial image 285 series 5 compared to 1.6 x 1.9 cm April 2022. Largest left pulmonary nodule measures 1.2 x 0.6 cm in the left lower lobe axial image 306 series 5 compared to 0.5 x 0.7 cm April 2022. MEDIASTINUM: No enlarged hilar or mediastinal lymph nodes. Normal heart size. Mild coronary artery calcification. Normal caliber thoracic aorta. Normal thyroid gland. Right jugular port with tip projecting over the cavoatrial junction. PLEURA: There is no pleural effusion. No pleural mass or thickening. Small right posterior diaphragmatic hernia containing fat. AXILLA: See abdominal and pelvic CT report from the same day. UPPER ABDOMEN: Unremarkable OSSEOUS STRUCTURES: Degenerative changes of the spine. CT/CT chest w IV con IMPRESSION: Interval increase in size and number of bilateral pulmonary nodules. Fleischner guidelines were followed.
--- NOTE | ~2022-12-08 | CT_ITS ---
EXAMINATION: CT ABDOMEN AND PELVIS WITH CONTRAST CLINICAL INFORMATION: Colon cancer. Check response to treatment COMPARISON: Previous CT of the abdomen and pelvis June 2022 TECHNIQUE: Multidetector volumetric images were obtained from the superior aspect of the liver through the pubic symphysis following administration 85 mL of Omnipaque 350 intravenous contrast. Sagittal and coronal reformatted images were obtained on the technologist's workstation. Oral contrast: Yes This CT examination was performed using dose optimization techniques as appropriate, variously including the following: *Automated exposure control *Adjustment of mA and/or kV according to patient size (this includes techniques or standardized protocols for targeted exams where dose is matched to indication/reason for exam; i.e. extremities or head) *Use of iterative reconstruction technique DLP: 317 mGy-cm FINDINGS: LUNG BASES: The visualized lung bases are unremarkable. LIVER, GALLBLADDER, AND BILIARY TREE: There are innumerable low-attenuation liver lesions suggestive of metastatic disease. These appear decreased in size from June 2022 exam. Largest liver lesions measure 2.6 cm in the posterior segment of the right lobe axial image 13 series 3 compared to 3.6 cm June 2022 and 2.3 x 3.5 cm in the right lobe axial image 18 series 3 compared to 5.6 x 3 cm June 2022 and 2.6 cm in the lateral segment of the left lobe axial image 12 series 3 compared to 4 cm June 2022 exam. The gallbladder is normal. There is no intrahepatic biliary duct dilatation. There is mild dilatation of the common bile duct measuring up to 1 cm. This is similar to previous exam. PANCREAS: Atrophic changes of the pancreas. SPLEEN: The spleen is enlarged and measures 13.7 cm in length. ADRENAL GLANDS: Unremarkable. KIDNEYS AND URETERS: The kidneys are normal in size, shape, and attenuation. No hydronephrosis, hydroureter, or calculi seen. No perinephric stranding. BLADDER: Unremarkable. GASTROINTESTINAL TRACT: There is stool throughout the colon suggestive of constipation. There is evidence of mild diverticulosis. No evidence of diverticulitis. There is wall thickening of the proximal ascending colon, increased enhancement and stranding of the adjacent fat questionable for known colon cancer. There is mild dilatation of the terminal ileum which is fluid-filled. Question wall thickening of the distal thoracic esophagus varices. ABDOMINAL WALL: No significant hernia is appreciated. LYMPH NODES: Spiculated mass in the mesentery of the right colon measuring 1.6 x 2.5 cm axial image 42 series 3. This is slightly decreased in size from prior exam when this measured 1.8 x 2.4 cm. There are smaller small bowel mesentery lymph nodes VASCULAR: Upper abdominal varices. PELVIC VISCERA: Unremarkable. OSSEOUS STRUCTURES: Degenerative changes of the spine. CT/CT abdomen pelvis w IV con IMPRESSION: Interval decrease in size and number of liver lesions. Persistent abnormal wall thickening and enhancement of the proximal ascending colon and adjacent mesenteric/malka mass. This appears slightly decreased from June 2022. Other stable findings as described above. Fleischner guidelines were followed.
[2022-12-08] MEDS: iohexoL 350 MG/ML 100 ML INFUS..BTL 85 ML IV (15:59)
== END 2022-12-08 15:01 | disposition home or self-care (01) ==
LOC: HO.CT 15:00
PROVIDERS: Visit Provider Internal Medicine
DX: C18.9 Malignant neoplasm of colon, unspecified (principal)
CPT/HCPCS: 71260; 74177; Q9967

== ENCOUNTER 2022-12-21 10:50 | Outpatient (REF) | payer MEDICARE, SELFPAY ==
--- NOTE | ~2022-12-21 | XR_ITS ---
EXAMINATION: XR ABDOMEN COMPLETE CLINICAL INDICATION: Abdominal distention. COMPARISON: CT abdomen pelvis 12/08/2022 TECHNIQUE: 2 views of the abdomen. FINDINGS: There is moderate to significant stool in the colon without distention. The small bowel loops are normal caliber. There is no organomegaly. No gross bony abnormality seen. XR/XR abdomen min 2V IMPRESSION: Moderate to severe constipation.
== END 2022-12-21 10:51 | disposition home or self-care (01) ==
LOC: HO.XRAY 10:50
PROVIDERS: Visit Provider Internal Medicine
DX: R10.9 Unspecified abdominal pain (principal); K59.00 Constipation, unspecified
CPT/HCPCS: 74019

== ENCOUNTER 2023-01-13 12:53 | Outpatient (REF) | payer MEDICARE, SELFPAY ==
[2023-01-13 14:03] LABS: Alanine Aminotransferase 27 U/L (0-40); Albumin Level 3.6 g/dL (3.5-5.0); Alkaline Phosphatase 161 U/L (39-117); Aspartate Amino Transferase 52 U/L (5-37); Bilirubin Direct 0.2 mg/dL (0.0-0.5); Bilirubin Total 0.7 mg/dL (0.0-1.0); Total Protein 7.3 g/dL (6.5-8.0)
[2023-01-15 15:08] LABS: Hepatitis B Viral DNA Qn - cp <1.00 NOT DETECTED Log IU/mL (NOT DETECTED); Hepatitis B Viral DNA Qn-IU/mL <10 NOT DETECTED IU/mL (NOT DETECTED)
== END 2023-01-13 12:54 | disposition home or self-care (01) ==
LOC: HO.LAB 12:53
PROVIDERS: Visit Provider Internal Medicine
DX: R76.8 Other specified abnormal immunological findings in serum (principal)
CPT/HCPCS: 36415; 80076; 87517

== ENCOUNTER 2023-02-22 16:41 | Inpatient (IN) | payer MEDICARE, SELFPAY ==
--- NOTE | ~2023-02-22 | CT_ITS ---
EXAMINATION: CT ABDOMEN AND PELVIS WITH CONTRAST CLINICAL INFORMATION: Colorectal cancer with Mets COMPARISON: Prior studies including the 12/08/2022 CT scan of the chest, abdomen, and pelvis TECHNIQUE: Multidetector volumetric imaging was performed from the superior aspect of the liver through the pubic symphysis following administration of 85 mL Omnipaque 300 intravenous contrast. Sagittal and coronal reformatted images were obtained on the technologist workstation.. This CT examination was performed using dose optimization techniques as appropriate, variously including the following: *Automated exposure control *Adjustment of mA and/or kV according to patient size (this includes techniques or standardized protocols for targeted exams where dose is matched to indication/reason for exam; i.e. extremities or head) *Use of iterative reconstruction technique DLP: 322 mGy-cm FINDINGS: LUNG BASES: Multiple bilateral pulmonary nodules are seen. The largest pulmonary nodule in the right lower lobe currently measures 2.8 cm in maximal diameter which is increased from 2.3 cm in maximal diameter on the 12/08/2022 study. Innumerable smaller pulmonary nodules are seen bilaterally otherwise. Small hiatal hernia with paraesophageal varicosities present. Incidental small fat-containing right-sided Bochdalek hernia. LIVER, GALLBLADDER, AND BILIARY TREE: Very heterogeneous appearance to the liver consistent with diffuse hepatic metastases. Unfortunately many these lesions are confluent in nature and difficult to directly compare the prior study. The largest discrete nodule in the medial segment 7 of the liver currently measures 3.5 cm in maximal diameter and previously measured 3.3 cm in size in similar orientation. Many of the other lesions are less well-defined and confluent in appearance The gallbladder is relatively distended but otherwise unremarkable with no evidence of radiopaque gallstones, gallbladder wall thickening, or obvious pericholecystic inflammatory changes. Biliary ducts: Common bile duct measures up to 1.2 cm maximally which is increased from 0.9 cm in similar orientation on the prior study. I do not appreciate any intraluminal filling defects within the prominent common bile duct up to the ampulla. PANCREAS: Atrophic. No pancreatic ductal dilatation or peripancreatic inflammatory change. SPLEEN: Prominent measuring 13 cm in length ADRENAL GLANDS: Unremarkable. KIDNEYS AND URETERS: The kidneys are normal in size, shape, and attenuation. No hydronephrosis, hydroureter, or calculi seen. No perinephric stranding. BLADDER: Unremarkable. GASTROINTESTINAL TRACT: There is diffuse colonic wall thickening somewhat less apparent in the transverse colon. Etiology of this pancolitis is uncertain. With this distribution, infectious or inflammatory changes would be more likely I do not appreciate any obstructive changes. Visualized small bowel is grossly unremarkable ABDOMINAL WALL: No significant hernia is appreciated. LYMPHOVASCULAR STRUCTURES: Vascular calcification within the aorta iliac system. Again note is made of paraesophageal varicosities. PELVIC VISCERA: Unremarkable. OSSEOUS STRUCTURES: Multilevel degenerative changes in the spine CT/CT abdomen pelvis w IV con IMPRESSION: 1. Diffuse hepatic metastases again noted. These are confluent in nature and difficult to directly compare to the prior study. The largest discrete nodule in the medial segment 7 of the liver has a most only slightly increased in size from the prior study. 2. Multiple pulmonary nodules are seen consistent with metastatic disease. The largest nodule in the right lower lobe has increased in size from the prior study. 3. There is diffuse colonic wall thickening seen. Etiology of this pancolitis is uncertain. Infectious or inflammatory causes would be favored. I do not appreciate any obstructive changes to the bowel. 4. Chronic appearing changes otherwise as described above.
[2023-02-22 16:49] VITALS: BP 116/90; PULSE 100; RESP 18; TEMP 36.7; O2SAT 98; BMI 23.8
--- NOTE | 2023-02-22 16:52 | ECG_ITS ---
Test Reason : ABD PAIN Blood Pressure : / mmHG Vent. Rate : 103 BPM Atrial Rate : 103 BPM P-R Int : 122 ms QRS Dur : 078 ms QT Int : 354 ms P-R-T Axes : -03 -38 053 degrees QTc Int : 463 ms Artifact in tracing Sinus tachycardia with occasional Premature ventricular complexes Left axis deviation Nonspecific T wave abnormality Abnormal ECG When compared with ECG of 05-MAY-2022 21:25, Premature ventricular complexes are now Present Vent. rate has increased BY 43 BPM Nonspecific T wave abnormality now evident in Anterolateral leads QT has lengthened Referred By: Robin Flynn Electronically Signed By:LEXX PETERSEN
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
[2023-02-22 17:26] LABS: Basophils Percent Auto 0.5 % (0-2); Hemoglobin 8.6 g/dl (14.0-18.0); Imm Gran Abs Auto 0.01 X10*3/uL (0.00-0.03); Imm Gran Pct Auto 0.5 % (0.0-0.4); Lymphocytes Absolute Auto 0.8 X10*3/uL (1.2-4.9); Lymphocytes Percent Auto 42.8 % (20-40); MANUAL DIFF FLAG SCAN; Mean Corpuscular HGB Conc 33.1 g/dl (31.0-36.0); Mean Corpuscular Hemoglobin 29.4 pg (27.0-33.0); Mean Corpuscular Volume 88.7 fL (80.0-98.0); Mean Platelet Volume 9.7 fL (9.4-12.4); Monocytes Absolute Auto 0.1 X10*3/uL (0.1-1.2); Monocytes Percent Auto 6.7 % (2-11); Neutrophils Percent Auto 49.5 % (45-73); Red Blood Count 2.93 X10*6/uL (4.60-5.80); SCAN SMEAR FLAG 1
[2023-02-22 17:28] LABS: White Blood Count 1.9 X10*3/uL (4.8-10.8)
[2023-02-22 17:29] LABS: Platelet Count 95 X10*3/uL (160-400)
[2023-02-22 17:39] LABS: Alanine Aminotransferase 20 U/L (0-40); Albumin Level 3.2 g/dL (3.5-5.0); Alkaline Phosphatase 236 U/L (39-117); Anion Gap 13 (12-20); Aspartate Amino Transferase 31 U/L (5-37); Bilirubin Total 1.1 mg/dL (0.0-1.0); Blood Urea Nitrogen 26 mg/dL (9-16); Calcium 8.8 mg/dL (8.4-10.2); Carbon Dioxide 26 mmol/L (22-29); Chloride 103 mmol/L (96-108); Creatinine Clr Calc Pharmacy 56.6; Estimated Glomerular Filt Rate > 60; Glucose Random 110 mg/dL (60-115); Lipase 16 U/L (8-78); Magnesium 1.8 mg/dL (1.6-2.6); Phosphorus 2.4 mg/dL (2.7-4.5); Potassium 3.7 mmol/L (3.3-5.1); Sodium 138 mmol/L (135-145); Total Protein 6.9 g/dL (6.5-8.0)
[2023-02-22 17:43] LABS: SLIDE REVIEW VERIFIED
[2023-02-22 17:46] LABS: Troponin-I High Sensitivity 3.6 ng/L (<3.5-35.0)
[2023-02-22] MEDS: iohexoL 350 MG/ML 100 ML INFUS..BTL IV (18:18)
[2023-02-22] MEDS: 0.9 % Sodium Chloride 1,000 ML 999 ML IV (18:32)
[2023-02-22] MEDS: Morphine Sulfate 4 MG/ML CARTRIDGE IVPUSH ×2 (18:32→23:38)
[2023-02-22] MEDS: Prochlorperazine Edisylate 10 MG/2 ML VIAL IVPUSH (18:32)
--- NOTE | 2023-02-22 19:45 | PC.NURSE ---
assumed care of patent at 1900 - pt resting comfortably on stretcher. CT done. iv fluids running through port. pt ringing call shah appropriately. will CTM
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
[2023-02-22 20:58] LABS: OBS Int Ctl Valid YES; OBS1 POSITIVE (NEGATIVE)
[2023-02-22 21:24] VITALS: BP 125/71; PULSE 95; RESP 14; TEMP 36.9; O2SAT 96
--- NOTE | 2023-02-22 21:39 | PHA.MEDREC ---
Pharmacy Consult ? Medication Reconciliation Pharmacy has completed the medication reconciliation. Pt poor historian. Only eluded to taking one red pill at bedtime. med rec based on claim history
[2023-02-22] MEDS: Lactated Ringers 1,000 ML 80 ML IVCONT (23:38)
[2023-02-22 23:39] VITALS: TEMP 36.6
[2023-02-23] VITALS (8 sets, daily range): BP systolic 104–145; BP diastolic 55–74; PULSE 85–104; RESP 16–18; TEMP 36.6–36.9; O2SAT 93–96; BMI 21.0
[2023-02-23] MEDS: Morphine Sulfate 4 MG/ML CARTRIDGE IVPUSH ×2 (06:22→10:27)
[2023-02-23 09:49] LABS: Hematocrit 29.7 % (42.0-52.0)
[2023-02-23] MEDS: Lactated Ringers 1,000 ML 80 ML IVCONT (10:32)
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
[2023-02-23 12:25] LABS: Neutrophils Absolute Auto 0.9 x10*3/uL (2.0-8.3); Platelet Count 106 X10*3/uL (160-400)
[2023-02-23 12:26] LABS: White Blood Count 2.1 X10*3/uL (4.8-10.8)
--- NOTE | 2023-02-23 14:17 | P.PNIM_ITS ---
Subjective Subjective Date of Service: 02/23/23 Interval History: complaining of thirst and abdominal pain, receiving IV morphine with no significant relief in pain, denies fever chills, had no further episodes of blood in stools had 1 bowel movement this morning, denies headache, no lig htheadedness or dizziness, denies urinary symptoms of urgency frequency, denies cough, no shortness of breath. Review of Systems Review of Systems: Yes all other systems are reviewed and are negative Physical Exam Vital Signs: Vital Signs: Last Vital Signs Temp 98.4 F 02/23/23 11:34 Pulse 104 H 02/23/23 11:34 Resp 18 02/23/23 11:34 BP 120/66 02/23/23 11:34 Pulse Ox 95 02/23/23 11:34 O2 Del Method Room Air 02/23/23 11:34 BMI result Body Mass Index 21.0 Const: Other: General patient resting comfortably in no acute distress. Neck is supple no JVD. CVS regular rate rhythm, Respiratory lungs clear to auscultation, no respiratory distress, no wheeze, no rhonchi. Gastrointestinal abdomen soft,LLQ tender to palpation, bowel sounds audible, no guarding , no rigidity. Extremities no edema. Neuro nonfocal . Skin no rash psych appropriate affect Objective Data Active Medications Acetaminophen (Acetaminophen 325 Mg Tablet) 650 mg PO Q6H PRN PRN Reason: Pain, Mild (Pain Scale 1-3) Docusate Sodium (Docusate Sodium 100 Mg Capsule) 100 mg PO DAILY PRN PRN Reason: Constipation Lactated Ringer's (Lr) 1,000 mls @ 80 mls/hr IVCONT .[id number] [facility] Last Admin: 02/23/23 10:32 Dose: 80 mls/hr Documented By: NATASHA Morphine Sulfate (Morphine Sulfate 4 Mg/Ml Cartridge) 4 mg IVPUSH Q4H PRN; Protocol PRN Reason: Pain, Severe (Pain Scale 7-10) Last Admin: 02/23/23 10:27 Dose: 4 mg Documented By: NATASHA Ondansetron HCl (Ondansetron Hcl 4 Mg/2 Ml Vial) 4 mg IVPUSH Q8H PRN PRN Reason: Nausea and Vomiting Oxycodone HCl (Oxycodone Hcl Immed Release 5 Mg Tablet) 5 mg PO Q4H PRN PRN Reason: Pain, Moderate(Pain Scale 4-6) Pharmacy Consult (Consult Rx Perform Med Rec) 1 each MISCELLANE ONCE PRN PRN Reason: Consult order Polyethylene Glycol (Polyethylene Glycol 3350 17 Gm Powd.Pack) 17 gm PO DAILY PRN PRN Reason: Constipation Senna/Docusate Sodium (Sennosides/Docusate Sodium Tablet) 1 tab PO BEDTIME [facility] Sodium Chloride (0.9 % Sodium Chloride Flush 3 Ml Syringe) 3 ml IVFLUSH QSHIFT [facility] Last Admin: 02/23/23 07:04 Dose: Not Given Documented By: NATASHA Non-Admin Reason: IV Running Labs 02/23/23 09:27 02/22/23 17:15 Labs: Laboratory Results - last 24 hr 02/22/23 02/22/23 02/22/23 17:15 17:15 17:15 MCV 88.7 MCH 29.4 MCHC 33.1 RDW 13.0 Plt Count 95 L D MPV 9.7 Immature Gran % (Auto) 0.5 H Neut % (Auto) 49.5 Lymph % (Auto) 42.8 H [place] % (Auto) 6.7 Eos % (Auto) 0.0 Baso % (Auto) 0.5 Lymph # (Auto) 0.8 L [place] # (Auto) 0.1 Eos # (Auto) 0.0 Baso # (Auto) 0.0 Abs Immat Gran (auto) 0.01 Absolute Neuts (auto) 1.0 L Absolute Nucleated RBC 0.000 Nucleated RBC % (auto) 0.0 Smear Tech's Comments VERIFIED Smear Path Review SEE NOTE Anion Gap 13 Estim Creat Clear Calc 56.6 Estimated GFR > 60 Random Glucose 110 Calcium 8.8 Phosphorus 2.4 L Magnesium 1.8 Total Bilirubin 1.1 H AST 31 ALT 20 Alkaline Phosphatase 236 H Troponin I High Sens 3.6 Total Protein 6.9 Albumin 3.2 L Lipase 16 Stool Occult Blood 02/22/23 02/23/23 20:38 09:27 MCV MCH MCHC RDW Plt Count 106 L MPV Immature Gran % (Auto) Neut % (Auto) Lymph % (Auto) [place] % (Auto) Eos % (Auto) Baso % (Auto) Lymph # (Auto) [place] # (Auto) Eos # (Auto) Baso # (Auto) Abs Immat Gran (auto) Absolute Neuts (auto) 0.9 L Absolute Nucleated RBC Nucleated RBC % (auto) Smear Tech's Comments Smear Path Review Anion Gap Estim Creat Clear Calc Estimated GFR Random Glucose Calcium Phosphorus Magnesium Total Bilirubin AST ALT Alkaline Phosphatase Troponin I High Sens Total Protein Albumin Lipase Stool Occult Blood POSITIVE Assessment and Plan (1) Lower GI bleed: Status: Acute (2) Liver mass: Status: Chronic (3) Colon adenocarcinoma: Status: Chronic Plan 73-year-old male with history of heroin abuse, hepatitis-C which was treated, pancytopenia on neulasta, and 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 #Acute blood loss anemia- r/t lower GI bleed due to adenocarcinoma of the colon -has anemia chronic disease at baseline -H/H 8.6/26.0%, above transfusion threshold on admission, repeat hematocrit improved without blood transfusion, drop in hematocrit likely due to chemotherapy and related to blood loss from Colon cancer - no recurrent episodes of blood in stools. - case discussed with GI no further workup recommended will place on full liquid diet and advance as tolerated, DC IV fluid. #Pancolitis -noted on CT abd/pelvis -low suspicion for infectious etiology. Likely inflammatory related to colon cancer, hold off on antibiotics no fevers no chills, neutropenia due to chemo repeat WBC improving follow clinical course #Pancytopenia - likely related to chemotherapy WBC improving, low ANC of 0.9,, no fevers ,no chills, follow CBC, oncology consultation obtained, case discussed with Dr. Jossie martin, continue close clinical follow-up . # hypophosphatemia will replace and follow labs # Adenocarcinoma of colon with liver Mets and abdominal pain place patient on oxycodone 5 mg q.4 hours, continue IV morphine obtain Oncology consultation and physical therapy eval / Ensure can t.i.d. DVT prophylaxis- compression boots avoid anticoagulation due to anemia Full code Patient requires inpatient hospitalization for management of acute blood loss anemia related to lower GI bleed requiring close monitoring of blood counts, IV hydration, and PT evaluation for safe discharge Time Spent With Patient Time: Total time managing care of this patient today ____ minutes. Quality Stroke Does the patient have a stroke diagnosis?: No VTE Prior VTE?: No VTE Risk Level:: Medical - moderate - high VTE Device Contraindication: N/A - Device Ordered VTE Drug Contraindication: Treatment Not Indicated
[2023-02-23] MEDS: Sodium,Potassium Phosphates POWD.PACK 1 PACKET PO (14:29)
[2023-02-23 17:54] LABS: Appearance Urine Clear; Color Urine Dark Yellow; Glucose Urine UA Negative (Negative); Leukocyte Esterase Urine Negative (Negative); Nitrite Urine Negative (Negative); PH 5.5 (5.0-9.0); Specific Gravity - Urine 1.025 (1.005-1.025); Urine Blood Negative (Negative); Urine Ketones 40 mg/dL (Negative); Urine Protein Trace mg/dL (Neg-Trace)
[2023-02-23 17:59] LABS: Bacteria Urine None Seen (None Seen); Hyaline Casts Urine 0-2 /LPF (0-2); RBC Urine 0-2 /HPF (0-2); Squamous Epithelial Cell Urine 0-2 /HPF (0-2); WBC Urine 0-5 /HPF (0-5)
[2023-02-23] MEDS: Sennosides/Docusate Sodium TABLET 1 TAB PO (21:07)
[2023-02-23] MEDS: 0.9 % Sodium Chloride Flush 3 ML SYRINGE IVFLUSH (21:07)
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
[2023-02-24] VITALS (7 sets, daily range): BP systolic 102–153; BP diastolic 58–68; PULSE 84–98; RESP 16–20; TEMP 36.1–37.4; O2SAT 94–97
[2023-02-24 07:12] LABS: Hematocrit 29.3 % (42.0-52.0); Mean Corpuscular HGB Conc 34.1 g/dl (31.0-36.0); Mean Corpuscular Hemoglobin 30.2 pg (27.0-33.0); Mean Corpuscular Volume 88.5 fL (80.0-98.0); Mean Platelet Volume 10.6 fL (9.4-12.4); Platelet Count 110 X10*3/uL (160-400); Red Blood Count 3.31 X10*6/uL (4.60-5.80); Red Cell Distribution Width 12.9 % (11.0-16.0)
[2023-02-24 07:18] LABS: White Blood Count 1.7 X10*3/uL (4.8-10.8)
[2023-02-24] MEDS: Morphine Sulfate 4 MG/ML CARTRIDGE IVPUSH (07:34)
[2023-02-24] MEDS: 0.9 % Sodium Chloride Flush 3 ML SYRINGE IVFLUSH ×2 (07:35→15:04)
[2023-02-24] MEDS: cefTRIAXone sodium 1 GM in 0.9 % Sodium Chloride 50 ML IV (08:43)
--- NOTE | 2023-02-24 08:58 | MHC.CM.PN ---
PATIENT LIVES WITH HIS NEPHEW. HE IS WILLING TO COMPLETE A HCP NAMING HIS NEPHEW WHEN HE IS FEELING LESS PAIN NO PCP. HE REPORTS NO DME OR [facility] NEPHEW TRANSPORTS WHERE NEEDED. IMM 02/24 IN CHART
[2023-02-24] MEDS: metroNIDAZOLE/NS 500 MG/100 ML PIGGYBACK 100 MG IV ×3 (09:30→23:34)
[2023-02-24 10:11] LABS: CDiff Gene PCR NEGATIVE (Negative)
[2023-02-24 14:35] LABS: Campylobacter Not Detected (Not Detect.); Plesiomonas shigelloides Not Detected (Not Detect.)
[2023-02-24 14:36] LABS: Adenovirus F 40/41 Not Detected (Not Detect.); Astrovirus Not Detected (Not Detect.); Cryptosporidium Not Detected (Not Detect.); Cyclospora cayetanensis Not Detected (Not Detect.); E. coli EAEC Not Detected (Not Detect.); E. coli EPEC Not Detected (Not Detect.); E. coli ETEC Not Detected (Not Detect.); E. coli STEC Not Detected (Not Detect.); Entamoeba histolytica Not Detected (Not Detect.); Giardia lamblia Not Detected (Not Detect.); Rotavirus A Not Detected (Not Detect.); Salmonella Not Detected (Not Detect.); Sapovirus Not Detected (Not Detect.); Shigella sp./EIEC Not Detected (Not Detect.); Vibrio Not Detected (Not Detect.); Vibrio Cholerae Not Detected (Not Detect.); Yersinia enterocolitica Not Detected (Not Detect.)
[2023-02-24 14:37] LABS: Norovirus GI/GII Detected (Not Detect.)
--- NOTE | 2023-02-24 14:39 | MHC.IC ---
NOROVIRUS POSITIVE. Strict handwashing with soap and water. Clean surfaces with bleach.
--- NOTE | 2023-02-24 14:44 | P.PNIM_ITS ---
Subjective Subjective Date of Service: 02/24/23 Interval History: complaining of liquidy loose stools to this morning and 3 yesterday complaining of persistent left-sided abdominal pain and chills denies fever, no chest pain, no shortness of breath denies urinary symptoms of urgency, no frequency, denies itching or rash, no other acute events overnight. Review of Systems Review of Systems: Yes all other systems are reviewed and are negative Physical Exam Vital Signs: Vital Signs: Last Vital Signs Temp 99.4 F 02/24/23 11:35 Pulse 86 02/24/23 11:35 Resp 18 02/24/23 11:35 BP 102/58 L 02/24/23 11:35 Pulse Ox 96 02/24/23 11:35 O2 Del Method Room Air 02/24/23 11:35 BMI result Body Mass Index 21.0 Const: Other: General Awake alert x3 appears uncomfortable due to abdominal pain and recurrent diarrhea,in no acute distress.? Neck supple no JVD. CVS? regular rate rhythm, Respiratory lungs clear to auscultation, no respiratory distress, no wheeze, no rhonchi. Gastrointestinal abdomen soft,LLQ tender to palpation, bowel sounds audible, no guarding , no rigidity. Extremities no edema. Neuro non focal . Skin no rash psych appropriate affect Objective Data Active Medications Acetaminophen (Acetaminophen 325 Mg Tablet) 650 mg PO Q6H PRN PRN Reason: Pain, Mild (Pain Scale 1-3) Docusate Sodium (Docusate Sodium 100 Mg Capsule) 100 mg PO DAILY PRN PRN Reason: Constipation Metronidazole (Flagyl) 500 mg in 100 mls @ 100 mls/hr IV Q8H [facility], [facility] Last Infusion: 02/24/23 10:30 Dose: 0 mls/hr Documented By: JOSE DAVID Ceftriaxone Sodium 1 gm/ (Sodium Chloride) 50 mls @ 100 mls/hr IV Q24H [facility], [facility] Last Infusion: 02/24/23 09:13 Dose: 0 mls/hr Documented By: JOSE DAVID Morphine Sulfate (Morphine Sulfate 4 Mg/Ml Cartridge) 4 mg IVPUSH Q4H PRN; Protocol PRN Reason: Pain, Severe (Pain Scale 7-10) Last Admin: 02/24/23 07:34 Dose: 4 mg Documented By: JOS EDAVID Ondansetron HCl (Ondansetron Hcl 4 Mg/2 Ml Vial) 4 mg IVPUSH Q8H PRN PRN Reason: Nausea and Vomiting Oxycodone HCl (Oxycodone Hcl Immed Release 5 Mg Tablet) 5 mg PO Q4H PRN PRN Reason: Pain, Moderate(Pain Scale 4-6) Pharmacy Consult (Consult Rx Perform Med Rec) 1 each MISCELLANE ONCE PRN PRN Reason: Consult order Polyethylene Glycol (Polyethylene Glycol 3350 17 Gm Powd.Pack) 17 gm PO DAILY PRN PRN Reason: Constipation Senna/Docusate Sodium (Sennosides/Docusate Sodium Tablet) 1 tab PO BEDTIME [facility], [facility] Last Admin: 02/23/23 21:07 Dose: 1 tab Documented By: LUIS ALBERTO Sodium Chloride (0.9 % Sodium Chloride Flush 3 Ml Syringe) 3 ml IVFLUSH QSHIFT [facility] Last Admin: 02/24/23 07:35 Dose: 3 ml Documented By: JOSE DAVID Labs 02/24/23 06:03 02/22/23 17:15 Labs: Laboratory Results - last 24 hr 02/23/23 02/24/23 02/24/23 17:30 06:03 06:03 MCV 88.5 MCH 30.2 MCHC 34.1 RDW 12.9 Plt Count 110 L MPV 10.6 Absolute Nucleated RBC 0.000 Nucleated RBC % (auto) 0.0 Phosphorus 2.0 L Urine Color Dark Yellow Urine Appearance Clear Urine pH 5.5 Ur Specific [place] 1.025 Urine Protein Trace Urine Glucose (UA) Negative Urine Ketones 40 Urine Blood Negative Urine Nitrite Negative Ur Leukocyte Esterase Negative Urine RBC 0-2 Urine WBC 0-5 Ur Squamous Epith Cells 0-2 Urine Bacteria None Seen Hyaline Casts 0-2 Stl C. cayetanensis PCR Stool Rotavirus A PCR Stl Adenov F 40/41 PCR Stool Astrovirus (PCR) Stool Campylobacter PCR Stool Cryptosporidium PCR Stl Sh Tox Pr E STEC PCR Stool E coli O157 PCR Stl Enterotoxigenic E PCR Stool EPEC (PCR) Stool EAEC (PCR) Stl E. histolytica PCR Stool Giardia Lamblia PCR Stl P. shigelloides PCR Stool Salmonella PCR Stool Sapovirus (PCR) Stl Shigella/EIEC PCR St Y.enterocolitica PCR Stool Vibrio (PCR) Stl Vibrio cholerae PCR Stl Norovirus GI/GII PCR C. difficile Tox B Gene 02/24/23 02/24/23 09:00 09:00 MCV MCH MCHC RDW Plt Count MPV Absolute Nucleated RBC Nucleated RBC % (auto) Phosphorus Urine Color Urine Appearance Urine pH Ur Specific [place] Urine Protein Urine Glucose (UA) Urine Ketones Urine Blood Urine Nitrite Ur Leukocyte Esterase Urine RBC Urine WBC Ur Squamous Epith Cells Urine Bacteria Hyaline Casts Stl C. cayetanensis PCR Not Detected Stool Rotavirus A PCR Not Detected Stl Adenov F 40/41 PCR Not Detected Stool Astrovirus (PCR) Not Detected Stool Campylobacter PCR Not Detected Stool Cryptosporidium PCR Not Detected Stl Sh Tox Pr E STEC PCR Not Detected Stool E coli O157 PCR Not applicable Stl Enterotoxigenic E PCR Not Detected Stool EPEC (PCR) Not Detected Stool EAEC (PCR) Not Detected Stl E. histolytica PCR Not Detected Stool Giardia Lamblia PCR Not Detected Stl P. shigelloides PCR Not Detected Stool Salmonella PCR Not Detected Stool Sapovirus (PCR) Not Detected Stl Shigella/EIEC PCR Not Detected St Y.enterocolitica PCR Not Detected Stool Vibrio (PCR) Not Detected Stl Vibrio cholerae PCR Not Detected Stl Norovirus GI/GII PCR Detected A C. 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 #Acute blood loss anemia- r/t lower GI bleed due to adenocarcinoma of the colon -anemia chronic disease at baseline -H/H 8.6/26.0%, above transfusion threshold on admission, repeat hematocrit improved without blood transfusion, drop in hematocrit likely due to chemotherapy and related to slow blood loss from Colon cancer - no recurrent episodes of blood in stools. repeat hematocrit remained stable - case discussed with GI no further workup recommended, tolerating diet no nausea, no vomiting. #Pancolitis/ abdominal pain -noted on CT abd/pelvis,, no fever, WBC low, 0.9 ANC GI recommend IV antibiotics, stool PCR positive for norovirus, C diff negative, since positive norovirus will DC IV antibiotics, will treat with analgesics, antiemetics,IVF, Supportive care. will place on clear Ensure , #Pancytopenia - likely related to chemotherapy WBC improving, low ANC of 0.9,, no fevers ,no chills, follow CBC, case discussed with Dr. Galvez, she agree with treatment plan, continue close clinical follow-up . # hypophosphatemia will replace and follow labs # Adenocarcinoma of colon with liver Mets and abdominal pain place patient on oxycodone 5 mg q.4 hours, continue IV morphine / physical therapy following patientl / Ensure can t.i.d. DVT prophylaxis- compression boots avoid anticoagulation due to anemia Full code Patient requires inpatient hospitalization for management of acute blood loss anemia related to lower GI bleed requiring close monitoring of blood counts, IV hydration, IV analgesics and continued PT evaluation for safe discharge Time Spent With Patient Time: Total time managing care of this patient today ____ minutes. Quality Stroke Does the patient have a stroke diagnosis?: No VTE Prior VTE?: No VTE Risk Level:: Medical - moderate - high VTE Device Contraindication: N/A - Device Ordered VTE Drug Contraindication: Treatment Not Indicated
--- NOTE | 2023-02-24 14:49 | MHC.CLN ---
NUTRITION CONSULT FOR POOR APPETITE. INTAKE SHOWS 25-50% AT MEALS. DIET=REGULAR WITH ENSURE TID. SUPPLEMENT PROVIDES ADDITIONAL 1050 KCALS, 60 G PROTEIN. NEW DX NOROVIRUS. FOLLOW FOR INTAKE AND DIET TOLERANCE.
[2023-02-24] MEDS: Lactated Ringers 1,000 ML 100 ML IVCONT (16:03)
[2023-02-24] MEDS: Sodium,Potassium Phosphates POWD.PACK 1 PACKET PO (20:22)
[2023-02-24] MEDS: Magnesium Hydrox/Alum Hydrox 30 ML ORAL.SUSP PO (20:42)
[2023-02-24] MEDS: oxyCODONE HCl Immed Release 5 MG TABLET PO (20:42)
[2023-02-25] MEDS: Lactated Ringers 1,000 ML 100 ML IVCONT ×3 (01:27→19:34)
[2023-02-25 03:29] VITALS: BP 100/56; PULSE 75; RESP 14; TEMP 36.8; O2SAT 95
[2023-02-25 06:37] LABS: Hematocrit 28.4 % (42.0-52.0); Hemoglobin 9.6 g/dl (14.0-18.0); Mean Corpuscular HGB Conc 33.8 g/dl (31.0-36.0); Mean Corpuscular Hemoglobin 29.9 pg (27.0-33.0); Mean Corpuscular Volume 88.5 fL (80.0-98.0); Platelet Count 104 X10*3/uL (160-400); Red Blood Count 3.21 X10*6/uL (4.60-5.80); Red Cell Distribution Width 13.2 % (11.0-16.0)
[2023-02-25 06:38] LABS: White Blood Count 1.5 X10*3/uL (4.8-10.8)
[2023-02-25 07:05] LABS: Anion Gap 7 (12-20); Blood Urea Nitrogen 14 mg/dL (9-16); Calcium 7.9 mg/dL (8.4-10.2); Carbon Dioxide 27 mmol/L (22-29); Chloride 105 mmol/L (96-108); Creatinine Clr Calc Pharmacy 77.9; Estimated Glomerular Filt Rate > 60; Glucose Random 100 mg/dL (60-115); Potassium 3.4 mmol/L (3.3-5.1); Sodium 136 mmol/L (135-145)
[2023-02-25 07:48] VITALS: BP 102/69; PULSE 85; RESP 18; TEMP 36.4; O2SAT 98
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
[2023-02-25 09:08] VITALS: BP 102/69; PULSE 85; O2SAT 98
[2023-02-25] MEDS: Sodium,Potassium Phosphates POWD.PACK 1 PACKET PO ×2 (09:17→19:34)
--- NOTE | 2023-02-25 10:27 | MHC.CM.PN ---
PATIENT REPORTS NOT HAVING A PCP. HE DOES HAVE GASTROENTEROLOGY AND ONCOLOGY PROVIDERS SNF REFERRALS PLACED AND NONE ARE ABLE TO OFFER. BOTH FACILITIES STATED THAT THEY ARE NOT CONTRACTED WITH THIS MANAGED MEDICARE INSURANCE. PATIENT ALSO HAVE IV CHEMO APPOINTMENTS WHICH POSE A BARRIER FOR SNF BED OFFERS.
[2023-02-25 11:53] VITALS: BP 136/79; PULSE 91; RESP 18; TEMP 36.4; O2SAT 97
[2023-02-25 13:12] LABS: Phosphorus 2.2 mg/dL (2.7-4.5)
--- NOTE | 2023-02-25 15:09 | HO.PM.IMPN ---
Subjective Subjective Date of Service: 02/25/23 Interval History: feeling better, complaining of persistent left lower quadrant abdominal pain, 1 loose bowel movement documented, as per patient he had 3 loose stools no fevers, no chills, no nausea, no vomiting, tolerating diet no urinary symptoms, no lightheadedness or dizziness Review of Systems Review of Systems: Yes all other systems are reviewed and are negative Physical Exam Vital Signs: Vital Signs: Last Vital Signs Temp 97.5 F 02/25/23 11:53 Pulse 91 02/25/23 11:53 Resp 18 02/25/23 11:53 BP 136/79 02/25/23 11:53 Pulse Ox 97 02/25/23 11:53 O2 Del Method Room Air 02/25/23 11:53 BMI result Body Mass Index 21.0 Const: Other: General ? Awake alert x3 appears comfortable ,in no acute distress.? Neck? supple no JVD. CVS? regular rate rhythm, Respiratory lungs clear to auscultation, no respiratory distress, no wheeze, no rhonchi. Gastrointestinal abdomen soft,LLQ tender to palpation, bowel sounds audible, no guarding , no rigidity. Extremities no edema. Neuro non focal . Skin no rash psych appropriate affect Objective Data Active Medications Acetaminophen (Acetaminophen 325 Mg Tablet) 650 mg PO Q6H PRN PRN Reason: Pain, Mild (Pain Scale 1-3) Lactated Ringer's (Lr) 1,000 mls @ 100 mls/hr IVCONT .Q10H GOKUL Last Admin: 02/25/23 11:03 Dose: 100 mls/hr Documented By: SAMMY Morphine Sulfate (Morphine Sulfate 4 Mg/Ml Cartridge) 4 mg IVPUSH Q4H PRN; Protocol PRN Reason: Pain, Severe (Pain Scale 7-10) Last Admin: 02/24/23 07:34 Dose: 4 mg Documented By: JOSE DAVID Ondansetron HCl (Ondansetron Hcl 4 Mg/2 Ml Vial) 4 mg IVPUSH Q8H PRN PRN Reason: Nausea and Vomiting Oxycodone HCl (Oxycodone Hcl Immed Release 5 Mg Tablet) 5 mg PO Q4H PRN PRN Reason: Pain, Moderate(Pain Scale 4-6) Last Admin: 02/24/23 20:42 Dose: 5 mg Documented By: AAKASH Pharmacy Consult (Consult Rx Perform Med Rec) 1 each MISCELLANE ONCE PRN PRN Reason: Consult order Polyethylene Glycol (Polyethylene Glycol 3350 17 Gm Powd.Pack) 17 gm PO DAILY PRN PRN Reason: Constipation Potassium Phos/Sodium Phos (Sodium,Potassium Phosphates Powd.Pack) 1 packet PO BID [facility] Last Admin: 02/25/23 09:17 Dose: 1 packet Documented By: SAMMY Sodium Chloride (0.9 % Sodium Chloride Flush 3 Ml Syringe) 3 ml IVFLUSH QSHIFT [facility] Last Admin: 02/25/23 09:17 Dose: Not Given Documented By: SAMMY Non-Admin Reason: IV Running Labs 02/25/23 05:54 02/25/23 05:54 Labs: Laboratory Results - last 24 hr 02/25/23 02/25/23 05:54 05:54 MCV 88.5 MCH 29.9 MCHC 33.8 RDW 13.2 Plt Count 104 L MPV 11.0 Absolute Nucleated RBC 0.000 Nucleated RBC % (auto) 0.0 Anion Gap 7 L Estim Creat Clear Calc 77.9 Estimated GFR > 60 Random Glucose 100 Calcium 7.9 L D Phosphorus 2.2 L Assessment and Plan (1) Lower GI bleed: Status: Acute (2) Liver mass: Status: Chronic (3) Colon adenocarcinoma: Status: Chronic Plan 73-year-old male with history of heroin abuse, hepatitis-C which was treated, pancytopenia on neulasta, and 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 #Acute blood loss anemia- r/t lower GI bleed due to adenocarcinoma of the colon -anemia chronic disease at baseline -H/H 8.6/26.0%, above transfusion threshold on admission, repeat hematocrit improved without blood transfusion, drop in hematocrit likely due to chemotherapy and related to slow blood loss from Colon cancer - no recurrent episodes of blood in stools. stool guaiac positive, repeat hematocrit remained stable - case discussed with GI no further workup recommended, tolerating diet no nausea, no vomiting. #Pancolitis/ abdominal pain -noted on CT abd/pelvis,, no fever, WBC low, 0.9 ANC GI recommend IV antibiotics, stool PCR positive for norovirus, C diff negative, since positive norovirus ,IV antibiotics discontinued, continue supportive care with analgesics, antiemetics,IVF. maintain stool chart. , #Pancytopenia - likely related to chemotherapy , no fevers ,no chills, follow CBC, case discussed with Dr. Galvez, she agree with treatment plan, continue close clinical follow-up . # hypophosphatemia replace and follow labs. # Adenocarcinoma of colon with liver Mets and chronic abdominal pain,cont. oxycodone 5 mg q.4 hours, dc IV morphine / physical therapy following patient patient complained of fatigue and did not ambulate PT recommended short-term rehab, but however patient cannot go to rehab due to receiving chemotherapy, encourage out of bed to chair recommend outpatient follow-up with Dr. Galvez. DVT prophylaxis- compression boots avoid anticoagulation due to anemia Full code Patient requires inpatient hospitalization for management of acute blood loss anemia related to lower GI bleed requiring close monitoring of blood counts, persistent diarrhea, IV hydration, and safe disposition Time Spent With Patient Time: Total time managing care of this patient today ____ minutes. Quality Stroke Does the patient have a stroke diagnosis?: No VTE Prior VTE?: No VTE Risk Level:: Medical - moderate - high VTE Device Contraindication: N/A - Device Ordered VTE Drug Contraindication: Treatment Not Indicated
[2023-02-25 15:58] VITALS: BP 97/64; PULSE 84; RESP 17; TEMP 36; O2SAT 96
[2023-02-25 19:50] VITALS: BP 99/63; PULSE 82; RESP 18; TEMP 36.2; O2SAT 96
[2023-02-25] MEDS: Magnesium Hydrox/Alum Hydrox 30 ML ORAL.SUSP PO (19:53)
--- NOTE | 2023-02-25 19:54 | MHC.PIE ---
p; pt c/o heartburn asking for maalox i; dr madera notified; new order maalox q6 prn e; will cont to monitor
[2023-02-26] VITALS: BP 104/69; PULSE 84; RESP 18; TEMP 36; O2SAT 100
[2023-02-26] MEDS: oxyCODONE HCl Immed Release 5 MG TABLET PO ×2 (00:14→06:58)
[2023-02-26] MEDS: Morphine Sulfate 4 MG/ML CARTRIDGE IVPUSH ×2 (02:58→07:56)
[2023-02-26] MEDS: Lactated Ringers 1,000 ML 100 ML IVCONT ×2 (03:02→13:59)
[2023-02-26 03:32] VITALS: BP 135/63; PULSE 96; RESP 18; TEMP 36.6; O2SAT 96
[2023-02-26 06:54] LABS: Hematocrit 27.4 % (42.0-52.0); Hemoglobin 9.4 g/dl (14.0-18.0); Mean Corpuscular HGB Conc 34.3 g/dl (31.0-36.0); Mean Corpuscular Hemoglobin 29.7 pg (27.0-33.0); Mean Corpuscular Volume 86.7 fL (80.0-98.0); Mean Platelet Volume 11.3 fL (9.4-12.4); Platelet Count 112 X10*3/uL (160-400); Red Blood Count 3.16 X10*6/uL (4.60-5.80); Red Cell Distribution Width 13.4 % (11.0-16.0)
[2023-02-26 06:55] LABS: White Blood Count 1.1 X10*3/uL (4.8-10.8)
[2023-02-26] MEDS: Sodium,Potassium Phosphates POWD.PACK 1 PACKET PO (06:58)
[2023-02-26 07:13] LABS: Anion Gap 7 (12-20); Blood Urea Nitrogen 10 mg/dL (9-16); Calcium 7.7 mg/dL (8.4-10.2); Carbon Dioxide 26 mmol/L (22-29); Chloride 105 mmol/L (96-108); Creatinine Clr Calc Pharmacy 81.8; Estimated Glomerular Filt Rate > 60; Glucose Random 89 mg/dL (60-115); Sodium 135 mmol/L (135-145)
[2023-02-26 07:15] VITALS: BP 108/65; PULSE 78; RESP 18; TEMP 37.1; O2SAT 97
[2023-02-26 08:54] VITALS: BP 108/65; PULSE 78; O2SAT 97
[2023-02-26 09:22] LABS: Magnesium 1.6 mg/dL (1.6-2.6)
[2023-02-26 10:32] LABS: Band Neutrophils Percent 1 % (3-5); Basophils Percent Manual 1 % (0-2); Eosinophils Absolute Manual 0.1 X10*3/uL (0.0-0.4); Eosinophils Percent Manual 7 % (0-4); Lymphocytes Absolute Manual 0.5 X10*3/uL (1.2-4.9); Lymphocytes Percent Manual 47 % (20-40); Monocytes Absolute Manual 0.2 X10*3/uL (0.1-1.2); Monocytes Percent Manual 17 % (2-11); Neutrophils Absolute Manual 0.3 X10*3/uL (2.0-8.3); Neutrophils Percent Manual 27 % (45-73)
[2023-02-26 10:35] LABS: Acanthocytes 1+ (0-2) /OIF; Platelet Estimate DECREASED (NORMAL); Platelet Morphology Comment NORMAL; RBC Morphology NOTED
[2023-02-26] MEDS: Potassium Chloride/H20 10 MEQ/100 ML PIGGYBACK 100 MEQ IV ×2 (10:54→12:37)
[2023-02-26] MEDS: Potassium Chloride ER 20 MEQ TAB.ER.PRT PO (10:58)
[2023-02-26 11:17] VITALS: BP 110/62; PULSE 72; RESP 18; TEMP 36.9; O2SAT 98
[2023-02-26 12:10] VITALS: BMI 21.0
[2023-02-26 13:52] LABS: Anion Gap 7 (12-20); Blood Urea Nitrogen 10 mg/dL (9-16); Carbon Dioxide 26 mmol/L (22-29); Chloride 104 mmol/L (96-108); Creatinine Clr Calc Pharmacy 77.9; Estimated Glomerular Filt Rate > 60; Glucose Random 135 mg/dL (60-115); Potassium 3.8 mmol/L (3.3-5.1); Sodium 133 mmol/L (135-145)
--- NOTE | 2023-02-26 14:54 | W.MHC.F2F ---
Service Date Service Date: 02/26/23 Encounter Date of encounter: 02/26/23 Reasons for Services Signs and symptoms assessed: Bed Mobility, Transfer Training,Gait Training, Therapeutic Activities, Therapeutic Exercise, Patient Education, Safety,Balance Reason for physical therapy: home safety and mobility, therapeutic exercises, gait/transfer training, assess need for DME, ADL training and energy conservation MD Overseeing Care: Tonya Galvez Homebound: Leaving the home is medically contraindicated at this time without the asist of a device and/or another person due th the listed conditions above and below. Reason homebound: unsteady gait / fall risk, immunosuppression / infection risk and weakness related to hospital stay Homebound supporting statement: Bed Mobility, Transfer Training,Gait Training, Therapeutic Activities, Therapeutic Exercise, Patient Education, Safety,Balance Certification: Based on the above findings, I certify that this patient is confined to the home and needs intermittent detention care, physical therapy and/or speech therapy, or continues to need occupational therapy. The patient is under my care, and I have initiated the establishment of the plan of care. The patient will be followed by a physician who will periodically review the plan of care. Time Spent With Patient Time: Total time managing care of this patient today ____ minutes.
--- NOTE | 2023-02-26 14:56 | P.DS_ITS ---
DS: Providers Provider Date of Service: 02/26/23 Date of admission: 02/22/23 20:12 Date of discharge: 02/26/23 Primary care physician: Unknown Physician Consults: 02/22/23 20:47 Consult to Hematology / Oncology Routine Consulting Provider: Tonya Galvez Reason for consultation: adenocarcinoma colon, blood loss anemia, leukopenia 02/23/23 11:25 Consult to Gastroenterology Routine Consulting Provider: Jess Jaramillo Reason for consultation: adeno ca colon with blood in stools Has provider been notified: No DS: Diagnosis Discharge Diagnosis (1) Colon adenocarcinoma: Status: Chronic (2) Liver mass: Status: Chronic (3) Lower GI bleed: Status: Acute (4) Anemia associated with acute blood loss: Status: Acute (5) Norovirus: Status: Acute DS: Summary Hospital Course Hospital Course: from admit H+P 02/22/23 by DAIANA Kaur: 73-year-old male with history of heroin abuse, hepatitis-C which was treated, pancytopenia on neulasta, and adenocarcinoma of the colon with metastasis to the liver on FOLFOX/Avastin last dose 3 days ago presented to the ED earlier today from his oncology office for evaluation of left-sided abdominal pain, anorexia, weight loss, and soft stool with bright red blood per rectum ongoing for 3 days.? He he denies history of similar symptoms.? There has also been nausea and vomiting and globus sensation but denies dysphagia.? He feels lightheadedness and fatigue.? No fevers, chills, sore throat, watery diarrhea, melena, hematemesis, shortness of breath, palpitations, or chest pain. On arrival, vitals normal except mild tachcyardia of 100. Afebrile.? Leukopenia of 1.9, RBC 2.93, H/H 8.6/26.0% (on 02/15 10.3/31.5%). PLT 95. Neutrophils 49.5%. Renal function baseline, electrolyte levels normal except for? Hypophosphatemia of 2.4.? Hepatic function baseline though mild hyperbilirubinemia of 1.1.? Stool occult blood positive.? CT abdomen/pelvis showing diffuse hepatic metastases, multiple pulmonary nodules consistent with metastatic disease, diffuse colonic wall thickening with infectious or inflammatory causes favored.? In the ED, given 1 L IV NS, prochlorperazine, and morphine. 73-year-old male with history of heroin abuse, hepatitis-C which was treated, pancytopenia on neulasta, and adenocarcinoma of the colon with metastasis to the liver on FOLFOX/Avastin last dose 3 days ago admitted for acute blood loss anemia with lower GI bleed related to the colon CA # acute blood loss anemia due to GI bleed from adenocarcinoma of colon - has baseline anemia chronic disease - H/H 8.6/26.0%, above transfusion threshold on admission, repeat hematocrit improved without blood transfusion, drop in hematocrit likely due to chemotherapy and related to slow blood loss from Colon cancer - no recurrent episodes of blood in stools. stool guaiac positive, repeat hemat ocrit remained stable - case discussed with GI; no further workup recommended, tolerating diet no nausea, no vomiting. # pancolitis/abdominal pain -noted on CT abd/pelvis. no fever, WBC low, 0.9 ANC -?GI recommend IV antibiotics, stool PCR positive for norovirus, C diff negative - since positive norovirus, IV antibiotics discontinued and diarrhea improved ? # pancytopenia - likely related to chemotherapy; no fevers ,no chills, follow CBC, case discussed with Dr. Galvez, she agreed with treatment plan, continue close clinical follow-up with next Oncology appt in 1 week # adenocarcinoma of colon with liver Mets and? chronic abdominal pain -? PT?recommendeded short-term rehab, but however patient cannot go to rehab due to receiving chemotherapy; will arrange home VNA services and will have outpt f/u with his oncologist Dr Galvez Time Spent with Patient Time attestation: Total time managing care of this patient today ___40_ minutes. Discharge coordination time: Greater than 30 minutes Quality: Safe Use of Opioids Does Pt have an Active Cancer Diagnosis on the Problem List?: No Quality: Stroke Does the patient have a stroke diagnosis?: No Physical Exam Vital Signs: Vital Signs: Last Vital Signs Temp 98.5 F 02/26/23 11:17 Pulse 72 02/26/23 11:17 Resp 18 02/26/23 11:17 BP 110/62 02/26/23 11:17 Pulse Ox 98 02/26/23 11:17 O2 Del Method Room Air 02/26/23 11:17 BMI result Body Mass Index 21.0 Gen: in no acute distress HEENT: sclera anicteric, moist mucus membranes Neck: supple Lungs: clear to auscultation bilaterally Heart: regular rate and rhythm, no murmurs Abd: soft, non-tender, non-distended Ext: no edema Skin: warm/well-perfused Neuro: alert and oriented x3, no focal findings Psych: appropriate affect DS: Data Data Completed and Pending Completed studies during hospitalization [Text1]: Laboratory Results WBC 1.1 X10*3/uL (4.8-10.8) L 02/26/23 05:24 RBC 3.16 X10*6/uL (4.60-5.80) L 02/26/23 05:24 Hgb 9.4 g/dl (14.0-18.0) L 02/26/23 05:24 Hct 27.4 % (42.0-52.0) L 02/26/23 05:24 MCV 86.7 fL (80.0-98.0) 02/26/23 05:24 MCH 29.7 pg (27.0-33.0) 02/26/23 05:24 MCHC 34.3 g/dl (31.0-36.0) 02/26/23 05:24 RDW 13.4 % (11.0-16.0) 02/26/23 05:24 Plt Count 112 X10*3/uL (160-400) L 02/26/23 05:24 MPV 11.3 fL (9.4-12.4) 02/26/23 05:24 Immature Gran % (Auto) 0.5 % (0.0-0.4) H 02/22/23 17:15 Neut % (Auto) 49.5 % (45-73) 02/22/23 17:15 Lymph % (Auto) 42.8 % (20-40) H 02/22/23 17:15 [place] % (Auto) 6.7 % (2-11) 02/22/23 17:15 Eos % (Auto) 0.0 % (0-4) 02/22/23 17:15 Baso % (Auto) 0.5 % (0-2) 02/22/23 17:15 Lymph # (Auto) 0.8 X10*3/uL (1.2-4.9) L 02/22/23 17:15 [place] # (Auto) 0.1 X10*3/uL (0.1-1.2) 02/22/23 17:15 Eos # (Auto) 0.0 X10*3/uL (0.0-0.4) 02/22/23 17:15 Baso # (Auto) 0.0 X10*3/uL (0.0-0.2) 02/22/23 17:15 Abs Immat Gran (auto) 0.01 X10*3/uL (0.00-0.03) 02/22/23 17:15 Absolute Neuts (auto) 0.9 x10*3/uL (2.0-8.3) L 02/23/23 09:27 Absolute Nucleated RBC 0.000 X10*3/uL (0.0-0.012) 02/26/23 05:24 Nucleated RBC % (auto) 0.0 /100WBC (0.0-0.2) 02/26/23 05:24 Neutrophils % (Manual) 27 % (45-73) L 02/26/23 05:24 Band Neutrophils % 1 % (3-5) L 02/26/23 05:24 Lymphocytes % (Manual) 47 % (20-40) H 02/26/23 05:24 Monocytes % (Manual) 17 % (2-11) H 02/26/23 05:24 Eosinophils % (Manual) 7 % (0-4) H 02/26/23 05:24 Basophils % (Manual) 1 % (0-2) 02/26/23 05:24 Abs Neuts (Manual) 0.3 X10*3/uL (2.0-8.3) L 02/26/23 05:24 Lymphocytes # (Manual) 0.5 X10*3/uL (1.2-4.9) L 02/26/23 05:24 Monocytes # (Manual) 0.2 X10*3/uL (0.1-1.2) 02/26/23 05:24 Eosinophils # (Manual) 0.1 X10*3/uL (0.0-0.4) 02/26/23 05:24 Platelet Estimate DECREASED (NORMAL) 02/26/23 05:24 Plt Morphology Comment NORMAL 02/26/23 05:24 RBC Morphology NOTED 02/26/23 05:24 Acanthocytes (Spur) 1+ (0-2) /OIF 02/26/23 05:24 Smear Tech's Comments VERIFIED 02/22/23 17:15 Smear Path Review SEE NOTE 02/22/23 17:15 Sodium 133 mmol/L (135-145) L 02/26/23 13:16 Potassium 3.8 mmol/L (3.3-5.1) D 02/26/23 13:16 Chloride 104 mmol/L (96-108) 02/26/23 13:16 Carbon Dioxide 26 mmol/L (22-29) 02/26/23 13:16 Anion Gap 7 (12-20) L 02/26/23 13:16 BUN 10 mg/dL (9-16) 02/26/23 13:16 Creatinine 0.63 mg/dL (0.5-1.4) 02/26/23 13:16 Estim Creat Clear Calc 77.9 02/26/23 13:16 Estimated GFR > 60 02/26/23 13:16 Random Glucose 135 mg/dL (60-115) H 02/26/23 13:16 Calcium 8.0 mg/dL (8.4-10.2) L 02/26/23 13:16 Phosphorus 2.0 mg/dL (2.7-4.5) L 02/26/23 05:24 Magnesium 1.6 mg/dL (1.6-2.6) 02/26/23 05:24 Total Bilirubin 1.1 mg/dL (0.0-1.0) H 02/22/23 17:15 AST 31 U/L (5-37) 02/22/23 17:15 ALT 20 U/L (0-40) 02/22/23 17:15 Alkaline Phosphatase 236 U/L (39-117) H 02/22/23 17:15 Troponin I High Sens 3.6 ng/L (<3.5-35.0) 02/22/23 17:15 Total Protein 6.9 g/dL (6.5-8.0) 02/22/23 17:15 Albumin 3.2 g/dL (3.5-5.0) L 02/22/23 17:15 Lipase 16 U/L (8-78) 02/22/23 17:15 Urine Color Dark Yellow 02/23/23 17:30 Urine Appearance Clear 02/23/23 17:30 Urine pH 5.5 (5.0-9.0) 02/23/23 17:30 Ur Specific [place] 1.025 (1.005-1.025) 02/23/23 17:30 Urine Protein Trace mg/dL (Neg-Trace) 02/23/23 17:30 Urine Glucose (UA) Negative mg/dL (Negative) 02/23/23 17:30 Urine Ketones 40 mg/dL (Negative) 02/23/23 17:30 Urine Blood Negative (Negative) 02/23/23 17:30 Urine Nitrite Negative (Negative) 02/23/23 17:30 Ur Leukocyte Esterase Negative (Negative) 02/23/23 17:30 Urine RBC 0-2 /HPF (0-2) 02/23/23 17:30 Urine WBC 0-5 /HPF (0-5) 02/23/23 17:30 Ur Squamous Epith Cells 0-2 /HPF (0-2) 02/23/23 17:30 Urine Bacteria None Seen (None Seen) 02/23/23 17:30 Hyaline Casts 0-2 /LPF (0-2) 02/23/23 17:30 Stool Occult Blood POSITIVE (NEGATIVE) 02/22/23 20:38 Stl C. cayetanensis PCR Not Detected (Not Detect.) 02/24/23 09:00 Stool Rotavirus A PCR Not Detected (Not Detect.) 02/24/23 09:00 Stl Adenov F 40/41 PCR Not Detected (Not Detect.) 02/24/23 09:00 Stool Astrovirus (PCR) Not Detected (Not Detect.) 02/24/23 09:00 Stool Campylobacter PCR Not Detected (Not Detect.) 02/24/23 09:00 Stool Cryptosporidium PCR Not Detected (Not Detect.) 02/24/23 09:00 Stl Sh Tox Pr E STEC PCR Not Detected (Not Detect.) 02/24/23 09:00 Stool E coli O157 PCR Not applicable (Not Detect.) 02/24/23 09:00 Stl Enterotoxigenic E PCR Not Detected (Not Detect.) 02/24/23 09:00 Stool EPEC (PCR) Not Detected (Not Detect.) 02/24/23 09:00 Stool EAEC (PCR) Not Detected (Not Detect.) 02/24/23 09:00 Stl E. histolytica PCR Not Detected (Not Detect.) 02/24/23 09:00 Stool Giardia Lamblia PCR Not Detected (Not Detect.) 02/24/23 09:00 Stl P. shigelloides PCR Not Detected (Not Detect.) 02/24/23 09:00 Stool Salmonella PCR Not Detected (Not Detect.) 02/24/23 09:00 Stool Sapovirus (PCR) Not Detected (Not Detect.) 02/24/23 09:00 Stl Shigella/EIEC PCR Not Detected (Not Detect.) 02/24/23 09:00 St Y.enterocolitica PCR Not Detected (Not Detect.) 02/24/23 09:00 Stool Vibrio (PCR) Not Detected (Not Detect.) 02/24/23 09:00 Stl Vibrio cholerae PCR Not Detected (Not Detect.) 02/24/23 09:00 Stl Norovirus GI/GII PCR Detected (Not Detect.) A 02/24/23 09:00 C. difficile Tox B Gene NEGATIVE (Negative) 02/24/23 09:00 Impressions Abdomen/Pelvis CT 02/22/23 18:32 IMPRESSION: 1. Diffuse hepatic metastases again noted. These are confluent in nature and difficult to directly compare to the prior study. The largest discrete nodule in the medial segment 7 of the liver has a most only slightly increased in size from the prior study. 2. Multiple pulmonary nodules are seen consistent with metastatic disease. The largest nodule in the right lower lobe has increased in size from the prior study. 3. There is diffuse colonic wall thickening seen. Etiology of this pancolitis is uncertain. Infectious or inflammatory causes would be favored. I do not appreciate any obstructive changes to the bowel. 4. Chronic appearing changes otherwise as described above. Discharge Plan Discharge Anticipated Discharge Date/Time: 02/26/23 14:47 Patient Disposition: Home Health Service Discharge Diagnosis: acute bloss anemia due to colon cancer norovirus infection pancytopenia Referrals: Tonya Galvez MD [Physician] - 1 Week Physician,Unknown J [Primary Care Provider] - 1 Week Discharge Medications: New oxycodone 5 mg Tablet 5 mg PO Q4H PRN (Reason: Pain, Moderate(Pain Scale 4-6)) Qty: 12 0RF Rx Instructions: Partial Fill upon patient request. Continued sennosides-docusate sodium 8.6-50 mg Capsule 1 tab-cap PO BEDTIME Qty: 30 2RF polyethylene glycol 3350 [Miralax] 17 gram powder in packet 17 g PO DAILY PRN (Reason: Constipation) Discharge Orders: Discharge Order (Routine); Ordered 02/26/23 Ordered By: Tiffani Ricks Diet: Advance to usual diet Activity on Discharge: As tolerated Stand Alone Forms: Patient Portal Discharge page Care Plan Goals: recovery from stool infection treatment of colon cancer Health Concerns: acute bloss anemia due to colon cancer norovirus infection pancytopenia Plan of Treatment: follow up with Dr Galvez from [facility] [place]cology in one week please Assessment: See Discharge Summary.
== END 2023-02-26 17:36 | disposition home health service (06) | DRG 385 ==
LOC: HO.ED 17:15 → HO.EDOVER 22:36 → HO.S3 23:04
PROVIDERS: Hospitalist; Physician Assistant; Admitting Provider Physician Assistant; Emergency Provider Internal Medicine; Visit Provider Family Medicine
DX: K51.011 Ulcerative (chronic) pancolitis with rectal bleeding (principal); D61.810 Antineoplastic chemotherapy induced pancytopenia; C18.9 Malignant neoplasm of colon, unspecified; C78.01 Secondary malignant neoplasm of right lung; D62 Acute posthemorrhagic anemia; C78.7 Secondary malignant neoplasm of liver and intrahepatic bile duct; C78.02 Secondary malignant neoplasm of left lung; E83.39 Other disorders of phosphorus metabolism; D70.1 Agranulocytosis secondary to cancer chemotherapy; T45.1X5A Adverse effect of antineoplastic and immunosuppressive drugs, initial encounter; D63.0 Anemia in neoplastic disease; F11.11 Opioid abuse, in remission; Z86.19 Personal history of other infectious and parasitic diseases
CPT/HCPCS: 36415; 74177; 80048; 80053; 81001; 82272; 83690; 83735; 84100; 84484; 85007; 85014; 85018; 85025; 85027; 85048; 85049; 87493; 87507; 93005; 97110; 97116; 97162; 99285; J0696; J2270; Q9967